=== PATIENT | female | born 1940 | race Caucasian/White ===

== ENCOUNTER 2025-02-07 17:38 | Observation (INO) ==
--- NOTE | 2025-02-07 17:42 | Emergency Department Note ---
Impression & Plan Intractable back pain, Anemia, Pericardial effusion, Abdominal pain ED Provider Note NAME: SONYA VELA AGE: 84 SEX: F : 1940 ARRIVES VIA: Ambulance INFORMANT: Patient, caregiver ED PROVIDER(S): James Caicedo MD CHIEF COMPLAINT: Back pain MEDICAL DECISION MAKING: Patient presents due to concern for back pain. IV was established and blood work was obtained. Patient was ordered IV fentanyl IV methylprednisolone and lidocaine patch. Patient already taken Tylenol prior to arrival. Patient did have a CT abdomen pelvis performed. Patient's blood work showed a white count of 3.8 with a hemoglobin 8.5. This is a drop but the most recent hemoglobin is from 2019 at which point it was 12. Patient's platelet count is unremarkable. Kidney function with a creatinine 1.23. Calcium of 8.5. LFTs and lipase are normal. Patient reportedly developed chest pain so an EKG was obtained by nursing. 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 Patient's chest pain is since resolved. Patient does report that she has a prior history of CAD. Patient CT of the abdomen pelvis shows a pelvic fluid connection that is adnexal in nature. The patient denies ever having her ovaries out. The patient does have mild left hydroureter. Hiatal hernia noted. Patient does have bilateral pleural and pericardial effusions. Patient also with associated inflammatory versus infectious stranding of the ileum cecum and proximal ascending colon. Patient had a recurrence of back pain which necessitated fentanyl IV 25 mcg x 2. In light of the patient's intractable back pain as well as some of the findings on CT and unknown as to whether or not these are acute or chronic findings due to believe the patient would benefit from further admission and testing. I did speak the on-call hospitalist service Dr. Buitrago and the patient was admitted to the medicine service. Discussion w/ other healthcare providers: Lay Kenney PA-C and Dr. Buitrago inpatient medicine service Prior /Outside records reviewed: I reviewed a prior neurology visit from Dr. Mauricio from July 2020. Patient with a history of essential tremor. Patient with known history of DJD dyslipidemia GERD hypothyroidism PTSD emphysema restless leg syndrome. Differential diagnosis: Musculoskeletal, disc herniation, fracture, sprain, strain, cord compression, discitis, sciatica, cauda equina, infection, renal colic, as well as other pathologies were considered. Diagnostics, as interpreted by me: ECG: None Cardiac monitoring: An order was placed for continuous cardiac monitoring. The monitor shows a rate of 85 with sinus rhythm. Patient was placed on pulse oximetry Medical decision rules: None Imaging studies: I informally interpreted the patient's CT abdomen pelvis shows pericardial and pleural effusions but does not show obvious obstruction with formal report to follow. HPI: Patient presents via EMS from [place] due to concerns for back pain. The patient states it was low and acute in onset when she sat up in bed this morning. Patient describes it as midline and nonradiating. No falls or trauma. Patient denies any heavy lifting twisting or turning. Patient states that she took 2 Tylenol did feel improved but around 4:00 felt worse and took 2 additional Tylenol. The patient's pain became more severe and called EMS. No meds given the route. The patient denies any chest pains or shortness of breath. The patient states that she has been eating well but maybe not drinking as much. The patient denies any dysuria or hematuria but does feel occasionally constipated. Patient does complain of abdominal pains as well. Patient denies any bowel bladder incontinence or retention. Patient denies any prior history of back surgery. PAST MEDICAL HISTORY: See Below PAST SURGICAL HISTORY: See Below SOCIAL HISTORY: See Below HOME MEDICATIONS: See Below ALLERGIES: See Below VITALS: See Below PHYSICAL EXAMINATION: GENERAL: NAD, non-toxic. EYE EXAM: Normal conjunctiva. PERRL, no anisocoria and EOM's grossly intact w/o pain. OROPHARYNX: Moist mucus membranes, grossly normal dentition. NECK: Trachea midline, no stridor. Supple, no nuchal rigidity, no adenopathy, non-tender. No signs of meningismus. FROM of the neck with good chin to chest and neck extension. LUNGS: Clear to auscultation. Normal chest wall mechanics. HEART: NSR, no MRG. ABDOMEN: Abdomen soft, periumbilical pain with diffuse tenderness more prominent in the lower abdomen compared to the upper abdomen, no masses, no rebound or guarding. BACK: No CVA TTP. Midline LBP. SKIN: No rashes and no bruising. UPPER EXTREMITIES: Upper extremities are grossly normal. LOWER EXTREMITIES: Grossly normal, no edema. Negative straight leg raise bilaterally but pain does worsen in her back with raising each of the lower extremities. No saddle anesthesia. NEURO EXAM: A&O x3, cranial nerves II-XII grossly intact, normal speech, moves all 4 extremities. Able to raise both legs off the bed. Good strength in the lower extremities good flexion and extension at the ankle and knees. 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 Restless leg syndrome Tremor Pulmonary emphysema Dyslipidemia GERD (gastroesophageal reflux disease) Hypothyroidism Thyroid nodule H/O pulmonary emphysema Osteoporosis Benign head tremor Medical History (Updated 02/07/25 @ 23:42 by James Caicedo MD) DJD (degenerative joint disease) of cervical spine Social History Smoking Status: Former smoker Feels Safe at Home: Yes Allergies Allergies Allergy/AdvReac Type Severity Reaction Status Date / Time No Known Allergies Allergy Verified 02/07/25 18:35 Home Meds Home Medications Medication Instructions Recorded Confirmed albuterol sulfate 90 mcg/actuation 2 puff inhalation Q4H PRN 07/07/19 02/07/25 aerosol inhaler Shortness Of Breath Or Wheezing acetaminophen 500 mg tablet 500 - 1,000 mg PO Q6H PRN 02/07/25 02/07/25 PAIN/FEVER alendronate 70 mg tablet 70 mg PO WK 02/07/25 02/07/25 aspirin 81 mg tablet,delayed 81 mg PO DAILY 02/07/25 02/07/25 release atorvastatin 20 mg tablet 20 mg PO DAILY 02/07/25 02/07/25 buspirone 10 mg tablet 10 mg PO TID 02/07/25 02/07/25 clopidogrel 75 mg tablet 75 mg PO DAILY 02/07/25 02/07/25 donepezil 5 mg tablet 5 mg PO DAILY 02/07/25 02/07/25 fluticasone fur. 100 mcg-umeclid 1 inh inhalation DAILY 02/07/25 02/07/25 62.5 mcg-vilant 25 mcg inhalat.powder (Trelegy Ellipta) furosemide 20 mg tablet 20 mg PO DAILY PRN LEG SWELLING 02/07/25 02/07/25 gabapentin 400 mg capsule 400 mg PO TID 02/07/25 02/07/25 levothyroxine 88 mcg tablet 88 mcg PO DAILYBB 02/07/25 02/07/25 multivitamin 1 tab PO DAILY 02/07/25 02/07/25 pantoprazole 40 mg tablet,delayed 40 mg PO DAILY 02/07/25 02/07/25 release pentoxifylline 400 mg 400 mg PO TIDM 02/07/25 02/07/25 tablet,extended release trazodone 50 mg tablet 50 mg PO HS 02/07/25 02/07/25 Results & Data (ED) Vital Signs Vital Signs - 24 hr 02/07/25 17:39 02/07/25 17:39 02/07/25 18:22 Temperature 36.9 C 36.9 C Temperature Source Oral Oral Pulse Rate 84 Pulse Rate [Finger] 84 Pulse Rhythm Regular Pulse Rhythm [Finger] Regular Pulse Strength Normal Pulse Strength [Finger] Normal Respiratory Rate 18 18 Respiratory Effort / Characteristics Non-Labored Spontaneous Non-Labored Spontaneous Respiratory Depth Normal Normal Respiratory Pattern Blood Pressure 130/54 L Blood Pressure [Left Arm] 130/54 L Blood Pressure Mean 79 Blood Pressure Mean [Left Arm] 79 Blood Pressure Position [Left Arm] Lying Pulse Oximetry 96 96 95 Oxygen Delivery Method Room Air Room Air Room Air Sepsis Recent Fever Within 48 Hours No Sepsis New/Unexplained Change in Mental Status N/A Sepsis Action Taken by Nursing No Action Required 02/07/25 19:13 02/07/25 19:17 02/07/25 22:07 Temperature Temperature Source Pulse Rate 85 Pulse Rate [Finger] 87 77 Pulse Rhythm Pulse Rhythm [Finger] Regular Pulse Strength Pulse Strength [Finger] Normal Respiratory Rate 20 23 Respiratory Effort / Characteristics Non-Labored Spontaneous Respiratory Depth Normal Respiratory Pattern Regular Blood Pressure Blood Pressure [Left Arm] 115/61 158/71 H Blood Pressure Mean Blood Pressure Mean [Left Arm] 79 100 Blood Pressure Position [Left Arm] Lying Pulse Oximetry 95 95 Oxygen Delivery Method Room Air Room Air Sepsis Recent Fever Within 48 Hours Sepsis New/Unexplained Change in Mental Status Sepsis Action Taken by Nursing 02/07/25 23:07 Temperature Temperature Source Pulse Rate 81 Pulse Rate [Finger] Pulse Rhythm Pulse Rhythm [Finger] Pulse Strength Pulse Strength [Finger] Respiratory Rate Respiratory Effort / Characteristics Respiratory Depth Respiratory Pattern Blood Pressure Blood Pressure [Left Arm] Blood Pressure Mean Blood Pressure Mean [Left Arm] Blood Pressure Position [Left Arm] Pulse Oximetry Oxygen Delivery Method Sepsis Recent Fever Within 48 Hours Sepsis New/Unexplained Change in Mental Status Sepsis Action Taken by [facility]idential Medications Current Medication List: was personally reviewed by me Laboratory Data Attestation: I reviewed the patient's lab results. 02/07/25 18:06 02/07/25 18:06 Lab Results 02/07/25 02/07/25 02/07/25 Range/Units 18:06 18:11 19:28 WBC 3.86 L (4.8-10.8) K/ul RBC 2.66 L (4.20-5.40) M/uL Hgb 8.5 L (12.0-16.0) g/dl POC Hgb 8.8 L (12.0-16.0) g/dl Hct 26.3 L (37.0-47.0) % POC Hct 26 L (37-47) % MCV 98.9 (80.0-100.0) fL MCH 32.0 (25.0-34.0) pg MCHC 32.3 (32.0-36.0) g/dL RDW Std Deviation 52.2 H (36.4-46.3) fL RDW Coeff of Blanca 14.3 (11.5-14.5) % Plt Count 132 (130-400) K/uL MPV 10.8 (9.4-12.4) fL Immature Gran % (Auto) 0.5 % Neut % (Auto) 66.6 % Lymph % (Auto) 20.2 % [place] % (Auto) 8.3 % Eos % (Auto) 3.6 % Baso % (Auto) 0.8 % Neut # (Auto) 2.57 (1.40-6.50) K/uL Lymph # (Auto) 0.78 L (1.20-3.40) K/uL [place] # (Auto) 0.32 (0.11-0.59) K/uL Eos # (Auto) 0.14 (0.00-0.50) K/uL Baso # (Auto) 0.03 (0.00-0.20) K/uL Immature Gran # (Auto) 0.02 (0.01-0.20) K/uL POC Sodium 142 (135-144) mmol/L Sodium 143 (136-145) mmol/L POC Potassium 4.3 (3.3-5.0) mmol/L Potassium 4.3 (3.5-5.1) mmol/L POC Chloride 106 (101-112) mmol/L Chloride 109 H (98-107) mmol/L Carbon Dioxide 30 (21-32) mmol/L POC Total CO2 25 (24-31) mmol/L Anion Gap 4 (3-11) POC Anion Gap 17.0 (16-25) mmol/L POC BUN 22 H (7-18) mg/dl BUN 24 H (6-23) mg/dl Creatinine 1.23 H (0.6-1.2) mg/dl POC Creatinine 1.5 H (0.6-1.3) mg/dl Est Cr Clr Drug Dosing 24.0 ml/min eGFR 43.06 BUN/Creatinine Ratio 19.5 (10-20) Glucose 123 H (70-99(Fasting)) mg/dl POC Glucose (other) 119 H (70-99) mg/dl Calcium 8.5 L (8.6-10.3) mg/dl POC Ioniz Calcium Amarjit 1.17 (1.12-1.32) mmol/l Total Bilirubin 0.2 (0.2-1.0) mg/dl AST 17 (13-39) U/L ALT 11 (7-52) U/L Alkaline Phosphatase 58 (34-104) U/L Troponin I High Sens 7.5 (0-14) pg/ml Total Protein 6.1 (6.0-8.3) gm/dl Albumin 3.4 (3.4-5.0) gm/dl Globulin 2.7 (2.5-4.0) gm/dl Albumin/Globulin Ratio 1.3 (0.9-2) Lipase 26 (11-82) U/L Urine Color Urine Appearance (Clear) Urine pH (4.5-7.5) Ur Specific [place] (1.000-1.030) Urine Protein (Negative) Urine Glucose (UA) (Negative) Urine Ketones (Negative) Urine Blood (Negative) Urine Nitrite (Negative) Urine Bilirubin (Negative) Urine Urobilinogen (Negative) Ur Leukocyte Esterase (Negative) Urine RBC (0-2) /hpf Urine WBC (0-5) /hpf Ur Epithelial Cells (0-2) /hpf Urine Bacteria (None Seen) Hyaline Casts (None Presnt) /lpf 02/07/25 02/07/25 Range/Units 20:56 21:37 WBC (4.8-10.8) K/ul RBC (4.20-5.40) M/uL Hgb (12.0-16.0) g/dl POC Hgb (12.0-16.0) g/dl Hct (37.0-47.0) % POC Hct (37-47) % MCV (80.0-100.0) fL MCH (25.0-34.0) pg MCHC (32.0-36.0) g/dL RDW Std Deviation (36.4-46.3) fL RDW Coeff of Blanca (11.5-14.5) % Plt Count (130-400) K/uL MPV (9.4-12.4) fL Immature Gran % (Auto) % Neut % (Auto) % Lymph % (Auto) % [place] % (Auto) % Eos % (Auto) % Baso % (Auto) % Neut # (Auto) (1.40-6.50) K/uL Lymph # (Auto) (1.20-3.40) K/uL [place] # (Auto) (0.11-0.59) K/uL Eos # (Auto) (0.00-0.50) K/uL Baso # (Auto) (0.00-0.20) K/uL Immature Gran # (Auto) (0.01-0.20) K/uL POC Sodium (135-144) mmol/L Sodium (136-145) mmol/L POC Potassium (3.3-5.0) mmol/L Potassium (3.5-5.1) mmol/L POC Chloride (101-112) mmol/L Chloride (98-107) mmol/L Carbon Dioxide (21-32) mmol/L POC Total CO2 (24-31) mmol/L Anion Gap (3-11) POC Anion Gap (16-25) mmol/L POC BUN (7-18) mg/dl BUN (6-23) mg/dl Creatinine (0.6-1.2) mg/dl POC Creatinine (0.6-1.3) mg/dl Est Cr Clr Drug Dosing ml/min eGFR BUN/Creatinine Ratio (10-20) Glucose (70-99(Fasting)) mg/dl POC Glucose (other) (70-99) mg/dl Calcium (8.6-10.3) mg/dl POC Ioniz Calcium Amarjit (1.12-1.32) mmol/l Total Bilirubin (0.2-1.0) mg/dl AST (13-39) U/L ALT (7-52) U/L Alkaline Phosphatase (34-104) U/L Troponin I High Sens 9.4 (0-14) pg/ml Total Protein (6.0-8.3) gm/dl Albumin (3.4-5.0) gm/dl Globulin (2.5-4.0) gm/dl Albumin/Globulin Ratio (0.9-2) Lipase (11-82) U/L Urine Color Yellow Urine Appearance Clear (Clear) Urine pH 5.5 (4.5-7.5) Ur Specific [place] 1.010 (1.000-1.030) Urine Protein Negative (Negative) Urine Glucose (UA) Negative (Negative) Urine Ketones Negative (Negative) Urine Blood Trace-intact H (Negative) Urine Nitrite Negative (Negative) Urine Bilirubin Negative (Negative) Urine Urobilinogen Negative (Negative) Ur Leukocyte Esterase Negative (Negative) Urine RBC 3-5 H (0-2) /hpf Urine WBC 0-5 (0-5) /hpf Ur Epithelial Cells 6-10 H (0-2) /hpf Urine Bacteria None Seen (None Seen) Hyaline Casts P (None Presnt) /lpf Administered Medications Discontinued Medications Fentanyl Citrate (Fentanyl Citrate Pf 100 Mcg/2 Ml Vial) 25 mcg IV NOW STA Stop: 02/07/25 17:51 Last Admin: 02/07/25 18:17 Dose: 25 mcg Documented By: JW Fentanyl Citrate (Fentanyl Citrate Pf 100 Mcg/2 Ml Vial) 25 mcg IV NOW STA Stop: 02/07/25 19:26 Last Admin: 02/07/25 19:38 Dose: 25 mcg Documented By: PAG Fentanyl Citrate (Fentanyl Citrate Pf 100 Mcg/2 Ml Vial) 25 mcg IV NOW STA Stop: 02/07/25 21:55 Last Admin: 02/07/25 22:06 Dose: 25 mcg Documented By: ASW Sodium Chloride (Nss) 1,000 mls @ 999 mls/hr IV .Q1H1M STA Stop: 02/07/25 18:50 Last Infusion: 02/07/25 19:41 Dose: Infused Documented By: Admin: 02/07/25 18:16 Dose: 999 mls/hr Documented By: TREVER Acetaminophen 825 mg/ EMPTY (BAG) 82.5 mls @ 330 mls/hr IV NOW STA Stop: 02/07/25 17:51 Last Admin: 02/07/25 18:24 Dose: Not Given Documented By: TREVER Ioversol (Optiray 320 100ml) 94 ml IV ONCE ONE Stop: 02/07/25 18:58 Last Admin: 02/07/25 18:58 Dose: 94 ml Documented By: JUSTEN Lidocaine (Lidocaine 5% 1 Patch) 1 patch TD NOW STA Stop: 02/07/25 17:53 Last Admin: 02/07/25 18:16 Dose: 1 patch Documented By: TREVER Methylprednisolone (Methylprednisolone 125 Mg/2 Ml Vial) 60 mg IV NOW STA Stop: 02/07/25 17:53 Last Admin: 02/07/25 18:17 Dose: 60 mg Documented By: TREVER Imaging Data Radiologist's Impression: Abdomen/Pelvis CT 02/07/25 17:50 EXAM: CT abd pelvis IV con only CLINICAL HISTORY: LBP/midline, periumbilical/diffuse ab pain. TECHNIQUE: CT of the abdomen and pelvis was performed with contrast, with the following protocol: axial images with, and reconstructed coronal and sagittal images. One of the following dose reduction techniques was utilized for this exam: Automated exposure control, adjustment of the mA and/or kV according to patient size, and use of iterative reconstruction. COMPARISON: No prior studies available for comparison. FINDINGS: Mild bilateral pleural and pericardial effusion. Abdomen: Moderate sliding hiatal hernia (type I). Liver: Hepatomegaly, measuring 17 cm at the largest craniocaudal span in the right lobe. There is a 1.0 cm simple cyst in segment IV. No focal lesions, cysts, or masses were identified. Hepatic vasculature and biliary ducts are unremarkable. Gallbladder and Biliary System: The gallbladder is normal in size and shape. There is a 0.5 cm calcific stone in the fundus. No wall thickening or pericholecystic fluid were identified. The common bile duct is normal in caliber without dilation. Pancreas: Pancreatic head, body, and tail are visualized and appear normal in size and density. No pancreatic masses or calcifications were noted. The pancreatic duct is not dilated. Spleen: Normal in size, shape, and density. No splenic lesions or masses were identified. Kidneys and Adrenal Glands: Both kidneys are normal in size, shape, and position. Cortical thickness is within normal limits. No renal calculi or hydronephrosis. Mild hydroureter noted on the left side in the two upper thirds. Adrenal glands are unremarkable with no evidence of masses or hyperplasia. Pelvis: Urinary Bladder: Normal in contour and wall thickness. No intraluminal lesions identified. Uterus and Ovaries: Not visualized but no gross abnormalities noted. Peritoneal and Retroperitoneal Structures: Fluid collection noted in the left side of the pelvis, measuring 2.9 x 2.7 x 2.5 cm. No lymphadenopathy was noted. Atherosclerotic calcification of the aorta and major branches is seen. Bowel: Mild thickening and edema of the wall in the last ileal loop, the cecum and proximal ascending colon (Series 300 Image 25/90, Series 2 Image 49/84), however they are normal in caliber. Associated mild fat stranding is also noted. Increased stool density in the ascending but mainly in the transverse colon. Marked sigmoid colon diverticulosis without CT evidence of acute diverticulitis. The appendix is not visualized. No evidence of bowel obstruction. Bones and Soft Tissues: Pelvic bones and soft tissues are unremarkable. No fractures or abnormal masses were identified. Bony island in the left femur. IMPRESSION: Thickened-walled last ileal loop, cecum and proximal ascending colon with mild peripheral fat stranding, probable inflammatory/ infectious etiology. Fecal load of the ascending and transverse colon. Noncomplicated sigmoid colon diverticulosis. Left pelvic fluid collection measuring 2.9 x 2.7 x2.5 cm, probable adnexal versus lymphocele (if history of oophorectomy), with upstream mild left hydroureter. Moderate sliding hiatal hernia (type I). Hepatomegaly, 17 cm, and a 1.0 cm simple cyst in the liver. A small gallstone in the fundus. Mild bilateral pleural and pericardial effusion. Further evaluation with chest CT recommended if clinically warranted. Correlate clinically. Electronically signed by Blair Villavicencio 02-07-2025 8:43 PM Discharge Plan Visit Data Chief Complaint: Back Injury/Pain Stated Complaint: BACK PAIN ED Provider: James Caicedo Discharge Problem: Intractable back pain, Anemia, Pericardial effusion, Abdominal pain Forms Stand Alone Forms: [facility] Prescriptions Prescriptions: No Action albuterol sulfate 90 mcg/actuation HFA aerosol inhaler 2 puff inhalation Q4H PRN (Reason: Shortness Of Breath Or Wheezing) multivitamin Tablet 1 tab PO DAILY atorvastatin 20 mg tablet 20 mg PO DAILY donepezil 5 mg tablet 5 mg PO DAILY trazodone 50 mg tablet 50 mg PO HS alendronate 70 mg tablet 70 mg PO WK gabapentin 400 mg capsule 400 mg PO TID clopidogrel 75 mg tablet 75 mg PO DAILY aspirin 81 mg Tablet,Delayed Release (Dr/Ec) 81 mg PO DAILY acetaminophen [Tylenol Ex Str Rapid Release] 500 mg Tablet 500 - 1,000 mg PO Q6H PRN (Reason: PAIN/FEVER) pentoxifylline 400 mg tablet extended release 400 mg PO TIDM levothyroxine 88 mcg tablet 88 mcg PO DAILYBB pantoprazole 40 mg tablet,delayed release (DR/EC) 40 mg PO DAILY buspirone 10 mg tablet 10 mg PO TID furosemide 20 mg tablet 20 mg PO DAILY PRN (Reason: LEG SWELLING) Trelegy Ellipta 100-62.5-25 mcg blister with device 1 inh INHALATION DAILY Referrals Referrals: Adriano Benson [Outside Practitioners] - Discharge Problem: Anemia Qualifiers: Anemia type: unspecified type Qualified Code(s): D64.9 - Anemia, unspecified Abdominal pain Qualifiers: Abdominal location: periumbilical Qualified Code(s): R10.33 - Periumbilical pain
[2025-02-07] MEDS: LIDOCAINE 5% 1 PATCH TD STA (18:16)
[2025-02-07] MEDS: SODIUM CHLORIDE 0.9% 1,000 ML IV STA (18:16)
[2025-02-07] MEDS: fentaNYL citrate PF 100 MCG/2 ML VIAL IV STA ×3 (18:17→22:06)
[2025-02-07] MEDS: methylPREDNISolone 125 MG/2 ML VIAL IV STA (18:17)
[2025-02-07] MEDS: ACETAMINOPHEN IV STA (18:24)
[2025-02-07 18:28] LABS: Basophils # (auto) 0.03 K/uL (0.00-0.20); Basophils % (auto) 0.8 %; Eosinophils # (auto) 0.14 K/uL (0.00-0.50); Eosinophils % (auto) 3.6 %; Hematocrit (blood only) 26.3 % (37.0-47.0); Hemoglobin 8.5 g/dl (12.0-16.0); Immature Granulocytes # (auto) 0.02 K/uL (0.01-0.20); Immature Granulocytes % (auto) 0.5 %; Lymphocytes # (auto) 0.78 K/uL (1.20-3.40); Lymphocytes % (auto) 20.2 %; Mean Corpuscular Hgb Conc 32.3 g/dL (32.0-36.0); Mean Corpuscular Volume 98.9 fL (80.0-100.0); Mean Platelet Volume 10.8 fL (9.4-12.4); Monocytes # (auto) 0.32 K/uL (0.11-0.59); Monocytes % (auto) 8.3 %; Neutrophils # (auto) 2.57 K/uL (1.40-6.50); Neutrophils % (auto) 66.6 %; Platelet Count 132 K/uL (130-400); RDW Coefficient of Variation 14.3 % (11.5-14.5); RDW Standard Deviation 52.2 fL (36.4-46.3); Red Blood Count 2.66 M/uL (4.20-5.40); White Blood Count 3.86 K/ul (4.8-10.8)
[2025-02-07 18:28] LABS: iSTAT Creatinine 1.5 mg/dl (0.6-1.3); iSTAT Hemoglobin 8.8 g/dl (12.0-16.0); iSTAT Ionized Calcium 1.17 mmol/l (1.12-1.32); iSTAT Potassium 4.3 mmol/L (3.3-5.0)
[2025-02-07 18:43] LABS: Albumin Globulin Ratio 1.3 (0.9-2); Albumin Level 3.4 gm/dl (3.4-5.0); BUN Creatinine Ratio 19.5 (10-20); Bilirubin,Total 0.2 mg/dl (0.2-1.0); Calcium 8.5 mg/dl (8.6-10.3); Globulin 2.7 gm/dl (2.5-4.0); Potassium 4.3 mmol/L (3.5-5.1); Total Protein 6.1 gm/dl (6.0-8.3)
[2025-02-07] MEDS: OPTIRAY 320 100ml IV ONE (18:58)
--- NOTE | 2025-02-07 20:43 | CT Scan Report ---
EXAM: CT abd pelvis IV con only CLINICAL HISTORY: LBP/midline, periumbilical/diffuse ab pain. TECHNIQUE: CT of the abdomen and pelvis was performed with contrast, with the following protocol: axial images with, and reconstructed coronal and sagittal images. One of the following dose reduction techniques was utilized for this exam: Automated exposure control, adjustment of the mA and/or kV according to patient size, and use of iterative reconstruction. COMPARISON: No prior studies available for comparison. FINDINGS: Mild bilateral pleural and pericardial effusion. Abdomen: Moderate sliding hiatal hernia (type I). Liver: Hepatomegaly, measuring 17 cm at the largest craniocaudal span in the right lobe. There is a 1.0 cm simple cyst in segment IV. No focal lesions, cysts, or masses were identified. Hepatic vasculature and biliary ducts are unremarkable. Gallbladder and Biliary System: The gallbladder is normal in size and shape. There is a 0.5 cm calcific stone in the fundus. No wall thickening or pericholecystic fluid were identified. The common bile duct is normal in caliber without dilation. Pancreas: Pancreatic head, body, and tail are visualized and appear normal in size and density. No pancreatic masses or calcifications were noted. The pancreatic duct is not dilated. Spleen: Normal in size, shape, and density. No splenic lesions or masses were identified. Kidneys and Adrenal Glands: Both kidneys are normal in size, shape, and position. Cortical thickness is within normal limits. No renal calculi or hydronephrosis. Mild hydroureter noted on the left side in the two upper thirds. Adrenal glands are unremarkable with no evidence of masses or hyperplasia. Pelvis: Urinary Bladder: Normal in contour and wall thickness. No intraluminal lesions identified. Uterus and Ovaries: Not visualized but no gross abnormalities noted. Peritoneal and Retroperitoneal Structures: Fluid collection noted in the left side of the pelvis, measuring 2.9 x 2.7 x 2.5 cm. No lymphadenopathy was noted. Atherosclerotic calcification of the aorta and major branches is seen. Bowel: Mild thickening and edema of the wall in the last ileal loop, the cecum and proximal ascending colon (Series 300 Image 25/90, Series 2 Image 49/84), however they are normal in caliber. Associated mild fat stranding is also noted. Increased stool density in the ascending but mainly in the transverse colon. Marked sigmoid colon diverticulosis without CT evidence of acute diverticulitis. The appendix is not visualized. No evidence of bowel obstruction. Bones and Soft Tissues: Pelvic bones and soft tissues are unremarkable. No fractures or abnormal masses were identified. Bony island in the left femur. IMPRESSION: Thickened-walled last ileal loop, cecum and proximal ascending colon with mild peripheral fat stranding, probable inflammatory/ infectious etiology. Fecal load of the ascending and transverse colon. Noncomplicated sigmoid colon diverticulosis. Left pelvic fluid collection measuring 2.9 x 2.7 x2.5 cm, probable adnexal versus lymphocele (if history of oophorectomy), with upstream mild left hydroureter. Moderate sliding hiatal hernia (type I). Hepatomegaly, 17 cm, and a 1.0 cm simple cyst in the liver. A small gallstone in the fundus. Mild bilateral pleural and pericardial effusion. Further evaluation with chest CT recommended if clinically warranted. Correlate clinically. Electronically signed by Blair Villavicencio 02-07-2025 8:43 PM
[2025-02-07 21:51] LABS: Appearance Urine Clear (Clear); Bilirubin Urine Negative (Negative); Blood Urine Trace-intact (Negative); Color Urine Yellow; Glucose Urine UA Negative (Negative); Ketones Urine Negative (Negative); Leukocyte Esterase Urine Negative (Negative); Nitrite Urine Negative (Negative); Protein Urine Negative (Negative); Urobilinogen Urine Negative (Negative); pH Urine 5.5 (4.5-7.5)
[2025-02-07 22:00] LABS: Hyaline Casts Urine P /lpf (None Presnt)
[2025-02-07 22:01] LABS: Bacteria Urine None Seen (None Seen); WBC Urine 0-5 /hpf (0-5)
--- NOTE | 2025-02-07 22:16 | History & Physical Report ---
Date of Service February 07, 2025 Assessment & Plan (1) Acute back pain: (2) Constipation: (3) Renal insufficiency: (4) Anemia: (5) Hypocalcemia: (6) Pericardial effusion: Plan 84-year-old female PMHx emphysema, GERD, hypothyroidism, essential tremor, RLS, PTSD presenting via EMS for lower back pain. ED evaluation reveals leukopenia, H&H 8.5/26.3; chloride 109, BUN 24, creatinine 1.23, calcium 8.5; troponin 7.5, 9.4 on repeat; UA negative for infection; lipase 26; CTAP with thickening walled last ileal loop cecum and proximal ascending colon likely inflammatory/infectious, fecal loading in ascending and transverse colon, diverticulosis, L pelvic fluid collection (adnexal versus lymphocele) moderate sliding hiatal hernia type I, hepatomegaly simple cyst in liver, small gallstone), and mild bilateral pleural pericardial effusions.; Provided with 1L NSS, methylprednisolone 60 mg IV, lidocaine patch, fentanyl citrate 25 mcg x 3, and acetaminophen IV in ED #Acute back pain Back pain starting morning of arrival, acute onset when sitting up in bed; trialed multiple doses of Tylenol with minimal relief, maximum pain "20/10". No recent trauma. No complaints of numbness/tingling, saddle anesthesia, or incontinence of bowel/bladder (from baseline incontinence). Without midline tenderness on exam, no skin changes. Suspect mainly musculoskeletal in nature but unclear if some component is GI related - CTAP with fecal loading, thickening within colon, sliding hiatal hernia, mild bilateral pleural effusions and pericardial effusion - Fall precautions - Heating pad and lidocaine patch - Pain management- continue home dose gabapentin and prn Tylenol - can advance pain management as appropriate but with caution of adding opioids given constipation - Defer further steroids given ? infectious etiology as identified on CTAP - PT/OT ordered- appreciate assistance #Constipation/Abdominal pain Last BM between 2-5 days [employer], was "very dark brown" in color but normal consistency; does admit to some abdominal pain and with clear tenderness to palpation of RUQ. No N/V. Was to follow with GI upcoming 02/09/2025. - Most recent CTAP fecal loading, thickening within colon, sliding hiatal hernia, mild bilateral pleural effusions and pericardial effusion - Lipase WNL; LFTs WNL - Fecal occult pending - Miralax + Senna rod, MoM prn - GI consulted - appreciate input + recs #Renal insufficiency Likely secondary to renal hypoperfusion; poor oral intake per patient - Cr 1.23, BUN 24; UA negative for infection - BMP am - Given 1L NSS in ED; deferred further fluids given pleural effusions but adjust as appropriate - Hold furosemide - Bladder scan prn #Anemia Admitting H&H 8.5/26.3; most recent labs from 2019 were 12.1/38.7; denies overt bleeding but states that her stools were black in color not long ago and her most recent stools were "very dark brown." Does have history of anemia but patient unclear of etiology, follows with oncologist for management and has had iron transfusions in the past. - H/H 8.5/26.3; normocytic normochromic pattern - Iron, TIBC/UIBC, ferritin pending; vitamin B12 and folate pending - CTAP w/ hepatomegaly; LFTs WNL - Type + screen pending - Fecal occult pending #Hypocalcemia Asymptomatic currently. - Ca 8.5, WNL albumin- repeat AM - Calcium Carbonate x 1 #Pericardial effusion/CAD s/p stent ? infectious/inflammatory etiology; Of note, with history of stent placement, on DAPT. - EKG at admission reports septal infarct; troponin x 2 WNL; patient denies chest pain during evaluation - EKG prn for chest pain - CTAP with pericardial effusion reported -- Echo pending #COPD/pulmonary emphysema- Albuterol inhaler as needed, Trelegy #HLD- Atorvastatin #PTSD- Trazodone, buspirone #Hypothyroidism- Levothyroxine #GERD- Pantoprazole Dispo: Admit, med/tele VTE prophylaxis: SCDs- consider chemical prophylaxis pending complete workup/if prolonged stay This document was dictated utilizing [employer]. Please excuse any grammatical errors that may be secondary to use of this software. Admission and Anticipated Discharge Date Admission Date: 02/07/2025 History of Present Illness Chief Complaint: Back pain Primary Care Provider: Latrice Davis PA-C 84-year-old female PMHx emphysema, GERD, hypothyroidism, essential tremor, RLS, PTSD presenting via EMS for lower back pain. Reportedly had acute onset low back pain when she sat up in bed the morning of arrival. Located at midline and does not radiate. Did utilize Tylenol multiple times throughout the day which provided some relief but the pain continues become more severe. Around 1600 she had a recurrence of back pain, stating the pain was "20/10" on the pain scale and she was screaming out in pain. Her telecom field technician, Yenifer, is present in room and helps to provide a history. States that the patient was "literally screaming out in pain" and she initially was going to drive her to the hospital but decided to call the ambulance instead. Shelby denies any neurological symptoms throughout this course other than some numbness in her feet after the ambulance ride. States that she has bowel and bladder incontinence at baseline but that this has not worsened or changed at all since the onset of back pain. Denies any recent falls or trauma to the back. Has had a history of back pain in the past, but never this severe. Admits that she often has problems with constipation, and that her last BM was between 2-5 days ago. Of note, the patient has had black stool in the past, but states that her last BM was a dark brown color and does not believe that it was black then. She denies bleeding or blood in stool otherwise. Does have some mild abdominal pain that is "all over" and mainly when she does not have a BM. She denies N/V. No additional symptoms to include chest pain, SOB, palpitations, diarrhea, LUTS, weakness, syncope, or F/C. Does have a history of R breast CA approximately 3 years ago and w/ R mastectomy; follows with oncologist who also manages her anemia and iron transfusions. Is not on oral iron at this time. ED evaluation reveals leukopenia, H&H 8.5/26.3; chloride 109, BUN 24, creatinine 1.23, calcium 8.5; troponin 7.5, 9.4 on repeat; UA negative for infection; lipase 26; CTAP with thickening walled last ileal loop cecum and proximal ascending colon likely inflammatory/infectious, fecal loading in ascending and transverse colon, diverticulosis, L pelvic fluid collection (adnexal versus lymphocele) moderate sliding hiatal hernia type I, hepatomegaly simple cyst in liver, small gallstone), and mild bilateral pleural pericardial effusions.; Provided with 1L NSS, methylprednisolone 60 mg IV, lidocaine patch, fentanyl citrate 25 mcg x 3, and acetaminophen IV in ED. Please see Dr. Hirsch's attestation for adjustments/additions to treatment plan. Allergies Allergy/AdvReac Type Severity Reaction Status Date / Time No Known Allergies Allergy Verified 02/07/25 18:35 Home Medications Medication Instructions Recorded Confirmed Type albuterol sulfate 90 mcg/actuation 2 puff inhalation Q4H PRN 07/07/19 02/07/25 History aerosol inhaler Shortness Of Breath Or Wheezing acetaminophen 500 mg tablet 500 - 1,000 mg PO Q6H PRN 02/07/25 02/07/25 History PAIN/FEVER alendronate 70 mg tablet 70 mg PO WK 02/07/25 02/07/25 History aspirin 81 mg tablet,delayed 81 mg PO DAILY 02/07/25 02/07/25 History release atorvastatin 20 mg tablet 20 mg PO DAILY 02/07/25 02/07/25 History buspirone 10 mg tablet 10 mg PO TID 02/07/25 02/07/25 History clopidogrel 75 mg tablet 75 mg PO DAILY 02/07/25 02/07/25 History donepezil 5 mg tablet 5 mg PO DAILY 02/07/25 02/07/25 History fluticasone fur. 100 mcg-umeclid 1 inh inhalation DAILY 02/07/25 02/07/25 History 62.5 mcg-vilant 25 mcg inhalat.powder (Trelegy Ellipta) furosemide 20 mg tablet 20 mg PO DAILY PRN LEG SWELLING 02/07/25 02/07/25 History gabapentin 400 mg capsule 400 mg PO TID 02/07/25 02/07/25 History levothyroxine 88 mcg tablet 88 mcg PO DAILYBB 02/07/25 02/07/25 History multivitamin 1 tab PO DAILY 02/07/25 02/07/25 History pantoprazole 40 mg tablet,delayed 40 mg PO DAILY 02/07/25 02/07/25 History release pentoxifylline 400 mg 400 mg PO TIDM 02/07/25 02/07/25 History tablet,extended release trazodone 50 mg tablet 50 mg PO HS 02/07/25 02/07/25 History 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 Restless leg syndrome Tremor Pulmonary emphysema Dyslipidemia GERD (gastroesophageal reflux disease) Hypothyroidism Thyroid nodule H/O pulmonary emphysema Osteoporosis Benign head tremor Medical History (Updated 02/07/25 @ 23:42 by James Caicedo MD) DJD (degenerative joint disease) of cervical spine Social History Smoking Status: Former smoker Hx Alcohol Use: No Hx Substance Use: No Current Living Situation: Other Current Living Situation Comment: lives at home with caregivers Feels Safe at Home: Yes Safety Concerns: Feels Safe At This Time Assistive Devices: Walker Review of Systems Review of Systems: All systems reviewed & are unremarkable except as noted in Subjective Physical Exam Physical Exam: General: No acute distress Skin: Warm and dry; No rashes noted to back/abdomen Head: Normocephalic, atraumatic; tremor Eyes: PERRL, conjunctivae clear, sclera non-icteric; bruise below R eye (patient unsure where this came from) ENT: External ear and ear canal without swelling; nose atraumatic; good dentition, tongue normal appearance, pharynx normal Neck: Supple, no LAD Cardio: RRR, no M/G/R, S1 and S2 normal Resp: No respiratory distress, Lungs CTA in all lobes bilaterally, no wheezes, rales, or rhonchi Abdomen: Soft, symmetric, tenderness to palpation RUQ, liver palpable below rib border; No guarding or peritoneal signs; No masses or splenomegaly; Bowel sounds normoactive MSK: No deformities; pulses palpable and equal; no edema; No midline tenderness to palpation of back, with tenderness to palpation of R paraspinal muscles at area of R kidney; negative straight leg raise bilaterally Neuro: Awake, alert; Sensation intact bilaterally; CN grossly intact. Resting tremor and head tremor at baseline. Psych: Appropriate mood and affect; good judgement and insight. Cement Mixer, Yenifer, present in room at time of visit. Results & Data Results & Data Vital Signs (Past 12 Hours) Vital Signs Temp Pulse Pulse Resp BP BP Pulse Ox 02/07/25 22:07 77 23 158/71 H 95 02/07/25 19:17 87 20 115/61 95 02/07/25 19:13 85 02/07/25 18:22 95 02/07/25 17:39 36.9 C 84 18 130/54 L 96 02/07/25 17:39 36.9 C 84 18 130/54 L 96 O2 Del Method 02/07/25 22:07 Room Air 02/07/25 19:17 Room Air 02/07/25 19:13 02/07/25 18:22 Room Air 02/07/25 17:39 Room Air 02/07/25 17:39 Room Air Laboratory Results 02/07/25 02/07/25 02/07/25 21:37 20:56 19:28 WBC RBC Hgb POC Hgb Hct POC Hct MCV MCH MCHC RDW Std Deviation RDW Coeff of Blanca Plt Count MPV Immature Gran % (Auto) Neut % (Auto) Lymph % (Auto) [place] % (Auto) Eos % (Auto) Baso % (Auto) Neut # (Auto) Lymph # (Auto) [place] # (Auto) Eos # (Auto) Baso # (Auto) Immature Gran # (Auto) POC Sodium Sodium POC Potassium Potassium POC Chloride Chloride Carbon Dioxide POC Total CO2 Anion Gap POC Anion Gap POC BUN BUN Creatinine POC Creatinine Est Cr Clr Drug Dosing eGFR BUN/Creatinine Ratio Glucose POC Glucose (other) Calcium POC Ioniz Calcium Amarjit Total Bilirubin AST ALT Alkaline Phosphatase Troponin I High Sens 9.4 7.5 Total Protein Albumin Globulin Albumin/Globulin Ratio Lipase Urine Color Yellow Urine Appearance Clear Urine pH 5.5 Ur Specific [place] 1.010 Urine Protein Negative Urine Glucose (UA) Negative Urine Ketones Negative Urine Blood Trace-intact H Urine Nitrite Negative Urine Bilirubin Negative Urine Urobilinogen Negative Ur Leukocyte Esterase Negative Urine RBC 3-5 H Urine WBC 0-5 Ur Epithelial Cells 6-10 H Urine Bacteria None Seen Hyaline Casts P 02/07/25 02/07/25 18:11 18:06 WBC 3.86 L RBC 2.66 L Hgb 8.5 L POC Hgb 8.8 L Hct 26.3 L POC Hct 26 L MCV 98.9 MCH 32.0 MCHC 32.3 RDW Std Deviation 52.2 H RDW Coeff of Blanca 14.3 Plt Count 132 MPV 10.8 Immature Gran % (Auto) 0.5 Neut % (Auto) 66.6 Lymph % (Auto) 20.2 [place] % (Auto) 8.3 Eos % (Auto) 3.6 Baso % (Auto) 0.8 Neut # (Auto) 2.57 Lymph # (Auto) 0.78 L [place] # (Auto) 0.32 Eos # (Auto) 0.14 Baso # (Auto) 0.03 Immature Gran # (Auto) 0.02 POC Sodium 142 Sodium 143 POC Potassium 4.3 Potassium 4.3 POC Chloride 106 Chloride 109 H Carbon Dioxide 30 POC Total CO2 25 Anion Gap 4 POC Anion Gap 17.0 POC BUN 22 H BUN 24 H Creatinine 1.23 H POC Creatinine 1.5 H Est Cr Clr Drug Dosing 24.0 eGFR 43.06 BUN/Creatinine Ratio 19.5 Glucose 123 H POC Glucose (other) 119 H Calcium 8.5 L POC Ioniz Calcium Amarjit 1.17 Total Bilirubin 0.2 AST 17 ALT 11 Alkaline Phosphatase 58 Troponin I High Sens Total Protein 6.1 Albumin 3.4 Globulin 2.7 Albumin/Globulin Ratio 1.3 Lipase 26 Urine Color Urine Appearance Urine pH Ur Specific [place] Urine Protein Urine Glucose (UA) Urine Ketones Urine Blood Urine Nitrite Urine Bilirubin Urine Urobilinogen Ur Leukocyte Esterase Urine RBC Urine WBC Ur Epithelial Cells Urine Bacteria Hyaline Casts Diagnostic Findings Abdomen/Pelvis CT 02/07/25 17:50 EXAM: CT abd pelvis IV con only CLINICAL HISTORY: LBP/midline, periumbilical/diffuse ab pain. TECHNIQUE: CT of the abdomen and pelvis was performed with contrast, with the following protocol: axial images with, and reconstructed coronal and sagittal images. One of the following dose reduction techniques was utilized for this exam: Automated exposure control, adjustment of the mA and/or kV according to patient size, and use of iterative reconstruction. COMPARISON: No prior studies available for comparison. FINDINGS: Mild bilateral pleural and pericardial effusion. Abdomen: Moderate sliding hiatal hernia (type I). Liver: Hepatomegaly, measuring 17 cm at the largest craniocaudal span in the right lobe. There is a 1.0 cm simple cyst in segment IV. No focal lesions, cysts, or masses were identified. Hepatic vasculature and biliary ducts are unremarkable. Gallbladder and Biliary System: The gallbladder is normal in size and shape. There is a 0.5 cm calcific stone in the fundus. No wall thickening or pericholecystic fluid were identified. The common bile duct is normal in caliber without dilation. Pancreas: Pancreatic head, body, and tail are visualized and appear normal in size and density. No pancreatic masses or calcifications were noted. The pancreatic duct is not dilated. Spleen: Normal in size, shape, and density. No splenic lesions or masses were identified. Kidneys and Adrenal Glands: Both kidneys are normal in size, shape, and position. Cortical thickness is within normal limits. No renal calculi or hydronephrosis. Mild hydroureter noted on the left side in the two upper thirds. Adrenal glands are unremarkable with no evidence of masses or hyperplasia. Pelvis: Urinary Bladder: Normal in contour and wall thickness. No intraluminal lesions identified. Uterus and Ovaries: Not visualized but no gross abnormalities noted. Peritoneal and Retroperitoneal Structures: Fluid collection noted in the left side of the pelvis, measuring 2.9 x 2.7 x 2.5 cm. No lymphadenopathy was noted. Atherosclerotic calcification of the aorta and major branches is seen. Bowel: Mild thickening and edema of the wall in the last ileal loop, the cecum and proximal ascending colon (Series 300 Image 25/90, Series 2 Image 49/84), however they are normal in caliber. Associated mild fat stranding is also noted. Increased stool density in the ascending but mainly in the transverse colon. Marked sigmoid colon diverticulosis without CT evidence of acute diverticulitis. The appendix is not visualized. No evidence of bowel obstruction. Bones and Soft Tissues: Pelvic bones and soft tissues are unremarkable. No fractures or abnormal masses were identified. Bony island in the left femur. IMPRESSION: Thickened-walled last ileal loop, cecum and proximal ascending colon with mild peripheral fat stranding, probable inflammatory/ infectious etiology. Fecal load of the ascending and transverse colon. Noncomplicated sigmoid colon diverticulosis. Left pelvic fluid collection measuring 2.9 x 2.7 x2.5 cm, probable adnexal versus lymphocele (if history of oophorectomy), with upstream mild left hydroureter. Moderate sliding hiatal hernia (type I). Hepatomegaly, 17 cm, and a 1.0 cm simple cyst in the liver. A small gallstone in the fundus. Mild bilateral pleural and pericardial effusion. Further evaluation with chest CT recommended if clinically warranted. Correlate clinically. Electronically signed by Blair Villavicencio 02-07-2025 8:43 PM Medications Administered NSS 1L Methylprednisolone 60 mg IV Lidocaine patch x 1 Fentanyl citrate 25 mcg IV x 3 Acetaminophen 825 Mg IV ECG Additional Comments: NSR, septal infarct 88bpm, MO 186, QRS 100, QT/QTc 398/481, PRT 74/-22/109 Code Status & VTE Plan Code Status Full Supervising Physician Co-Signing Physician Notes Attending addendum: I have physically seen this patient, have supervised the medical residents activities, and agree with the H&P unless as otherwise noted. Assessment and Plan: The patient is an 84-year-old female with past medical history including emphysema, GERD, hypothyroidism, essential tremor, RLS, PTSD, who presents to the emergency department with worsening low back pain. Her pain developed relatively quickly and intensified from the morning of admission and throughout the day. She reports that the pain began acutely when she sat up in bed in the morning. She denies any recent trauma, recent travels or sick exposures. #Acute back pain- As noted, began when sitting up in bed the morning of admission Pain seemed to be more of a mechanical issue, but may be a GI component as well Continue heating pad and lidocaine patch Continuing gabapentin home dosing, and Tylenol as needed mild pain or fever From the ED the patient received the following: Normal saline 1 L IV bolus, fentanyl 25 mcg IV x 3, Tylenol 1 g IV, methylprednisolone 60 mg IV, and Lidoderm patch. Will hold any further methylprednisolone at this time Consult PT/OT Constipation/abdominal pain- CT scan does note thickened ileum, cecum and proximal ascending colon, with left pelvic fluid 2.9 x 2.7 x 2.5 cm. There is also mild fecal loading Bowel prep with MiraLAX, senna and milk of magnesia Pleural effusion/pericardial effusion/history of CAD and coronary artery stent- The patient will be admitted to telemetry for serial cardiac enzymes, serial EKG's, cardiac rhythm monitoring and a 2-D echocardiogram with Dopplers. Normal troponin x 2 Chronic medical conditions:- COPD with emphysema-continue Trelegy and albuterol HFA Hyperlipidemia-continue atorvastatin PTSD-continue trazodone and buspirone Hypothyroidism-continue levothyroxine GERD-continue pantoprazole PG Care Time/CCT Total # of Minutes Spent Total Time Spent with Patient: Total time spent is greater than 50% in coordination of care (as documented) at patient's floor/unit and/or counseling patient: Coding Level of Care Code 18608 INT INP/OBS CARE 3/75MIN Diagnoses Acute back pain M54.9 Constipation K59.00 Renal insufficiency N28.9 Anemia D64.9 Hypocalcemia E83.51 Pericardial effusion I31.39
[2025-02-08] MEDS ORDERED: ACETAMINOPHEN 500 MG TAB PO PRN (00:15)
[2025-02-08] MEDS ORDERED: MAGNESIUM HYDROXIDE SUSP 30 ML UDC PO PRN (00:15)
[2025-02-08] MEDS: CALCIUM CARBONATE 500 MG CHEWABLE TAB PO ONE (00:44)
[2025-02-08] MEDS: ACETAMINOPHEN 500 MG TAB PO SCH (00:44)
[2025-02-08] MEDS: HYDROmorphone INJ 0.5 MG/0.5 ML SYR IV STA (00:44)
[2025-02-08] MEDS ORDERED: ALBUTEROL HFA 8 GM INHALER INH PRN (01:04)
[2025-02-08] MEDS: LEVOTHYROXINE SODIUM 88 MCG TABLET PO SCH (05:12)
[2025-02-08 05:43] LABS: Hematocrit (blood only) 24.3 % (37.0-47.0); Hemoglobin 7.8 g/dl (12.0-16.0); Mean Corpuscular Hemoglobin 31.8 pg (25.0-34.0); Mean Corpuscular Hgb Conc 32.1 g/dL (32.0-36.0); Mean Corpuscular Volume 99.2 fL (80.0-100.0); Mean Platelet Volume 10.4 fL (9.4-12.4); Platelet Count 124 K/uL (130-400); RDW Coefficient of Variation 14.5 % (11.5-14.5); RDW Standard Deviation 52.3 fL (36.4-46.3); Red Blood Count 2.45 M/uL (4.20-5.40); White Blood Count 2.48 K/ul (4.8-10.8)
[2025-02-08 05:57] LABS: BUN Creatinine Ratio 22.7 (10-20); Calcium 7.7 mg/dl (8.6-10.3); Creatinine Clr Calc Pharmacy 30.5 ml/min; Potassium 4.5 mmol/L (3.5-5.1)
[2025-02-08 06:15] LABS: Ferritin 244.4 ng/ml (8-388)
[2025-02-08 06:20] LABS: Folate (Folic Acid),Ser orPlas > 22.30 ng/ml (>5.38)
[2025-02-08 06:21] LABS: Vitamin B12 511 pg/ml (180-914)
[2025-02-08] MEDS: ASPIRIN 81 MG ECTAB PO SCH (09:20)
[2025-02-08] MEDS: PENTOXIFYLLINE 400MG EXT REL TAB PO SCH (09:20)
[2025-02-08] MEDS: busPIRone 5 MG TAB PO SCH (09:21)
[2025-02-08] MEDS: ATORVASTATIN 20 MG TAB PO SCH (09:21)
[2025-02-08] MEDS: DONEPEZIL HCL 5 MG TAB PO SCH (09:22)
[2025-02-08] MEDS: PANTOprazole 40 MG TAB PO SCH (09:22)
[2025-02-08] MEDS: FLUTICASONE FUROATE 100MCG 14 PUFFS/INHALER INH SCH (09:22)
[2025-02-08] MEDS: CLOPIDOGREL BISULFATE 75 MG TAB PO SCH (09:22)
[2025-02-08] MEDS: UMECLIDINIUM/VILANTEROL 62.5/25MCG 7 PUFFS/INHALER INH SCH (09:22)
[2025-02-08] MEDS: POLYETHYLENE (MIRALAX) 17 GM PACK PO SCH (09:22)
[2025-02-08] MEDS: GABAPENTIN 400 MG CAP PO SCH (09:22)
--- NOTE | 2025-02-08 10:18 | Hospitalist Progress Note ---
Date of Service February 08, 2025 Assessment & Plan (1) Acute back pain: (2) Constipation: (3) Renal insufficiency: (4) Anemia: (5) Hypocalcemia: (6) Pericardial effusion: Plan 84-year-old female PMHx emphysema, GERD, hypothyroidism, essential tremor, RLS, PTSD presented via EMS for acute onset of lower back pain that began the morning of presentation to the hospital; midline pain without radiating symptoms. CT A/P on admission with thickening walled last ileal loop cecum and proximal ascending colon likely inflammatory/infectious, fecal loading in ascending and transverse colon, diverticulosis, L pelvic fluid collection (adnexal versus lymphocele) moderate sliding hiatal hernia type I, hepatomegaly simple cyst in liver, small gallstone), and mild bilateral pleural pericardial effusions. #Acute back pain Back pain starting morning of arrival, acute onset when sitting up in bed; trialed multiple doses of Tylenol with minimal relief, maximum pain "20/10". No recent trauma. No complaints of numbness/tingling, saddle anesthesia, or incontinence of bowel/bladder (from baseline incontinence). Without midline tenderness on exam, no skin changes. Suspect mainly musculoskeletal in nature but unclear if some component is GI related - Pain management: scheduled Tylenol, Dilaudid 0.25 mg IV q6h PRN breakthrough pain (cautious use of narcotics with ongoing constipation), home dose of gabapentin, heating pad and lidocaine patch - Defer further steroids given ? infectious etiology as identified on CTAP. Defer NSAIDs given concern for occult GI bleeding - PT/OT ordered- appreciate assistance #Constipation/Abdominal pain Last BM between 2-5 days [employer], was "very dark brown" in color but normal consistency; does admit to some abdominal pain and with clear tenderness to palpation of RUQ. No N/V. Was to follow with GI outpatient on 02/09/2025. - Most recent CT A/P with fecal load of ascending and transverse colon, thickening within colon with mild peripheral fat stranding, probable inflammatory/infectious etiology - Concern for stercoral colitis, started Zosyn 4.5 mg IV q8h. Lipase WNL; LFTs WNL - Fecal occult pending - Miralax + Senna rod, MoM prn - GI consulted - appreciate input + recs - NPO until improvement from bowel regimen. Started NSS IV fluid at maintenance rate #Anemia / Pancytopenia Admitting H&H 8.5/26.3; most recent labs from 2019 were 12.1/38.7; denies overt bleeding but states that her stools were black in color not long ago and her most recent stools were "very dark brown." Does have history of anemia but patient unclear of etiology. Follows with oncologist for history of R breast CA 3 years ago s/p R mastectomy, who also manages her anemia and outpatient iron transfusions. - CTAP w/ hepatomegaly; LFTs WNL - Blood type A positive, antibody screen negative - Iron panel most consistent with anemia of chronic disease. B12 and folate WNL - Fecal occult pending - TSH WNL, peripheral smear pending - Obtain outpatient hematology notes #Pericardial effusion/CAD s/p stent ? infectious/inflammatory etiology; Of note, with history of stent placement, on DAPT. - EKG at admission reports septal infarct; troponin x 2 WNL; patient denies chest pain during evaluation - EKG prn for chest pain - CTAP with pericardial effusion reported - Echocardiogram with EF 60-65%, small pericardial effusion, no echocardiographic indication of cardiac tamponade, grade 1 diastolic dysfunction Recommend repeat echo in 1 month #Renal insufficiency Likely secondary to renal hypoperfusion; poor oral intake per patient - UA negative for infection. Cr 1.23 on admission, now down to 0.97 after 1 L NSS - Hold furosemide - Bladder scan prn #Hypocalcemia Asymptomatic currently. Given Calcium Carbonate x 1 on admission - Ca 8.5, corrected calcium for hypoalbuminemia at 9.0 - Continue to monitor #COPD/pulmonary emphysema- Albuterol inhaler as needed, Trelegy. Wears 2 L O2 HS, RA during the day #HLD- Atorvastatin #PTSD- Trazodone, buspirone #Hypothyroidism- Levothyroxine #GERD- Pantoprazole Dispo: Continued inpatient stay to complete workup and treatment VTE prophylaxis: SCDs- consider chemical prophylaxis pending complete workup/if prolonged stay Ordered peripheral smear, TSH Adjusted diet and started IV fluids Started Zosyn IV Updated caregiver at bedside Admission and Anticipated Discharge Date Admission Date: February 07, 2025 Supervising Physician Co-Signing Physician Notes PILAR Supervision Note: I did not personally see or examine the patient today, but I verified all blood points of PILAR Loyola's assessment and plan with the following exceptions/additions: None Subjective Patient seen and evaluated at bedside with her caregiver, Yenifer, present. She reports 7/10 lower back pain currently. She is unable to describe the pain only noting "it's all over." She denies radiating symptoms. She does also note moderate abdominal pain "all over." She states that she deals with chronic constipation at home and intermittently has back pain, but states this pain is different. She reports she had a headache in the ED yesterday that is now resolved. Denies nausea or vomiting. She has not had a bowel movement yet but is passing a lot of gas and feels she will have a BM soon. We discussed cautious use of narcotics given her constipation and further recommendations from GI. Physical Exam Physical Exam: General: No acute distress, nondiaphoretic. Cardiac: Regular rate and rhythm without murmurs gallops or rubs. Pulm: Clear to auscultation bilaterally without wheezes, rales or rhonchi. Normal respiratory effort. 97% on room air. Abdominal: Soft, nondistended. Tender to palpation throughout abdomen, but more prominent in lower quadrants. Bowel sounds present. Neuro: A&O x3. Resting tremor and head tremor at baseline. No focal neurological deficits. MSK: Tenderness to palpation of lumbar paraspinal muscles bilaterally. No spinal kayla deformities. No peripheral edema. Results & Data Results & Data Vital Signs (Past 12 Hours) Vital Signs Temp Pulse Pulse Pulse Resp BP BP 02/08/25 07:47 98.1 F 68 16 02/08/25 05:37 64 02/08/25 04:18 97.9 F 68 20 130/48 L 02/08/25 00:57 02/08/25 00:57 97.9 F 84 20 172/68 H 02/08/25 00:21 84 17 02/08/25 00:16 81 02/08/25 00:15 97.9 F 84 20 172/68 H 02/07/25 23:07 81 02/07/25 22:07 77 23 158/71 H BP Pulse Ox O2 Del Method O2 Flow Rate 02/08/25 07:47 116/48 L 98 Nasal Cannula 2 02/08/25 05:37 02/08/25 04:18 97 Nasal Cannula 2 02/08/25 00:57 Room Air 02/08/25 00:57 96 Room Air 02/08/25 00:21 98 Room Air 02/08/25 00:16 02/08/25 00:15 96 Room Air 02/07/25 23:07 02/07/25 22:07 95 Room Air Laboratory Results Reviewed CBC with differential Reviewed BMP Reviewed iron panel Reviewed UA Diagnostic Findings Reviewed CT A/P Reviewed echocardiogram PG Care Time/CCT Total # of Minutes Spent Total Time Spent with Patient: Total time spent is greater than 50% in coordination of care (as documented) at patient's floor/unit and/or counseling patient: Coding Level of Care Code 92087 SUB INP/OBS CARE 3/50MIN Diagnoses Acute back pain M54.9 Constipation K59.00 Renal insufficiency N28.9 Anemia D64.9 Hypocalcemia E83.51 Pericardial effusion I31.39
[2025-02-08 10:31] LABS: Thyroid Stimulating Hormone 0.409 uIu/ml (0.300-4.500)
--- NOTE | 2025-02-08 10:46 | Gastrointestinal Consultation ---
Date of Consultation February 08, 2025 Assessment & Plan (1) Abdominal pain: Pleasant elderly lady with back pain. I am not certain that her colon can be the cause of the amount of back pain that she is complaining of. Also back pain related to constipation does not usually worsen with motion. It is possible she has an acute infectious issue causing the CT changes and that could also cause her some back pain. That should resolve on her own over the next day or so if it is real. I would like to see how she does with bowel movement and whether it affects her back at all. She could take a clean out and that would answer a lot of those questions but lets see if what she feels now will lead to spontaneous bowel movement. If we consider colonoscopy it would have to be delayed as she is on plavix. I will follow with you History of Present Illness Reason for Consultation: abnormal CT Attending Physician: Alexia Drew MD History of Present Illness 84 year old female admitted with back pain. She has chronic back pain but it has gotten worse over the past several days. She says it hurts when she moves around. She doesn't know if having a bowel movement affects this pain because she hasn't had one yet (although she is getting ready to try to have one). She does have quite a bit of gas. She says she has "felt warm and then felt cold" but doesn't know if she has had a fever or not. She does not have any nausea or vomiting. CT scan was done which shows "increase in stool burden in the transverse colon and thickened wall of the ileum and proximal colon". She has not had a colonoscopy in years but was scheduled to see GI in [place] on Sunday to discuss one. Of note for several days in the past her stools were dark. She does get iron infusions but she wasn't really clear as to whether she takes oral iron. She is on plavix Allergies Allergy/AdvReac Type Severity Reaction Status Date / Time No Known Allergies Allergy Verified 02/07/25 18:35 Home Medications Medication Instructions Recorded Confirmed Type albuterol sulfate 90 mcg/actuation 2 puff inhalation Q4H PRN 07/07/19 02/07/25 History aerosol inhaler Shortness Of Breath Or Wheezing acetaminophen 500 mg tablet 500 - 1,000 mg PO Q6H PRN 02/07/25 02/07/25 History PAIN/FEVER alendronate 70 mg tablet 70 mg PO WK 02/07/25 02/07/25 History aspirin 81 mg tablet,delayed 81 mg PO DAILY 02/07/25 02/07/25 History release atorvastatin 20 mg tablet 20 mg PO DAILY 02/07/25 02/07/25 History buspirone 10 mg tablet 10 mg PO TID 02/07/25 02/07/25 History clopidogrel 75 mg tablet 75 mg PO DAILY 02/07/25 02/07/25 History donepezil 5 mg tablet 5 mg PO DAILY 02/07/25 02/07/25 History fluticasone fur. 100 mcg-umeclid 1 inh inhalation DAILY 02/07/25 02/07/25 History 62.5 mcg-vilant 25 mcg inhalat.powder (Trelegy Ellipta) furosemide 20 mg tablet 20 mg PO DAILY PRN LEG SWELLING 02/07/25 02/07/25 History gabapentin 400 mg capsule 400 mg PO TID 02/07/25 02/07/25 History levothyroxine 88 mcg tablet 88 mcg PO DAILYBB 02/07/25 02/07/25 History multivitamin 1 tab PO DAILY 02/07/25 02/07/25 History pantoprazole 40 mg tablet,delayed 40 mg PO DAILY 02/07/25 02/07/25 History release pentoxifylline 400 mg 400 mg PO TIDM 02/07/25 02/07/25 History tablet,extended release trazodone 50 mg tablet 50 mg PO HS 02/07/25 02/07/25 History Patient History Medical History DJD (degenerative joint disease) of cervical spine Social History Smoking Status: Former smoker Hx Alcohol Use: No Hx Substance Use: No Current Living Situation: Other Current Living Situation Comment: lives at home with caregivers Feels Safe at Home: Yes Safety Concerns: Feels Safe At This Time Assistive Devices: Walker Review of Systems Review of Systems: All systems reviewed & are unremarkable except as noted in HPI & below Physical Exam Physical Exam: Elderly female with tremor in no distress Constitutional: WD/WN, vitals as above Neck: trachea midline, no thyromegaly Respiratory: normal respiratory effort, lungs clear to auscultation Cardiovascular: RRR, no murmur, no edema Gastrointestinal (Abdomen): Inspection/Auscultation: abdomen normal to inspection; abdomen not distended Percussion/Palpation: + abdomen tender (lower abdomen) and abdomen soft Results & Data Vital Signs (Past 12 Hours) Vital Signs Temp Pulse Pulse Pulse Resp BP BP 02/08/25 07:47 36.7 C 68 16 02/08/25 05:37 64 02/08/25 04:18 36.6 C 68 20 130/48 L 02/08/25 00:57 02/08/25 00:57 36.6 C 84 20 172/68 H 02/08/25 00:21 84 17 02/08/25 00:16 81 02/08/25 00:15 36.6 C 84 20 172/68 H 02/07/25 23:07 81 BP Pulse Ox O2 Del Method O2 Flow Rate 02/08/25 07:47 116/48 L 98 Nasal Cannula 2 02/08/25 05:37 02/08/25 04:18 97 Nasal Cannula 2 02/08/25 00:57 Room Air 02/08/25 00:57 96 Room Air 02/08/25 00:21 98 Room Air 02/08/25 00:16 02/08/25 00:15 96 Room Air 02/07/25 23:07 Laboratory Results 02/08/25 02/08/25 02/07/25 Range/Units 05:18 01:19 21:37 WBC 2.48 L (4.8-10.8) K/ul RBC 2.45 L (4.20-5.40) M/uL Hgb 7.8 L (12.0-16.0) g/dl POC Hgb (12.0-16.0) g/dl Hct 24.3 L (37.0-47.0) % POC Hct (37-47) % MCV 99.2 (80.0-100.0) fL MCH 31.8 (25.0-34.0) pg MCHC 32.1 (32.0-36.0) g/dL RDW Std Deviation 52.3 H (36.4-46.3) fL RDW Coeff of Blanca 14.5 (11.5-14.5) % Plt Count 124 L (130-400) K/uL MPV 10.4 (9.4-12.4) fL Immature Gran % (Auto) % Neut % (Auto) % Lymph % (Auto) % Kaufman % (Auto) % Eos % (Auto) % Baso % (Auto) % Neut # (Auto) (1.40-6.50) K/uL Lymph # (Auto) (1.20-3.40) K/uL Kaufman # (Auto) (0.11-0.59) K/uL Eos # (Auto) (0.00-0.50) K/uL Baso # (Auto) (0.00-0.20) K/uL Immature Gran # (Auto) (0.01-0.20) K/uL Peripher Smr Path Cons Pending POC Sodium (135-144) mmol/L Sodium 141 (136-145) mmol/L POC Potassium (3.3-5.0) mmol/L Potassium 4.5 (3.5-5.1) mmol/L POC Chloride (101-112) mmol/L Chloride 111 H (98-107) mmol/L Carbon Dioxide 26 (21-32) mmol/L POC Total CO2 (24-31) mmol/L Anion Gap 4 (3-11) POC Anion Gap (16-25) mmol/L POC BUN (7-18) mg/dl BUN 22 (6-23) mg/dl Creatinine 0.97 (0.6-1.2) mg/dl POC Creatinine (0.6-1.3) mg/dl Est Cr Clr Drug Dosing 30.5 ml/min eGFR 57.26 BUN/Creatinine Ratio 22.7 H (10-20) Glucose 138 H (70-99(Fasting)) mg/dl POC Glucose (other) (70-99) mg/dl Calcium 7.7 L (8.6-10.3) mg/dl POC Ioniz Calcium Amarjit (1.12-1.32) mmol/l Iron 32 L (35-150) mcg/dl TIBC 171 L (250-450) mcg/dl Transferrin 122 L (200-360) mg/dl Transferrin % Sat 19 (15-50) % Ferritin 244.4 (8-388) ng/ml Total Bilirubin (0.2-1.0) mg/dl AST (13-39) U/L ALT (7-52) U/L Alkaline Phosphatase (34-104) U/L Troponin I High Sens (0-14) pg/ml Total Protein (6.0-8.3) gm/dl Albumin (3.4-5.0) gm/dl Globulin (2.5-4.0) gm/dl Albumin/Globulin Ratio (0.9-2) Lipase (11-82) U/L Vitamin B12 511 (180-914) pg/ml Folate > 22.30 (>5.38) ng/ml TSH 0.409 (0.300-4.500) uIu/ml Urine Color Yellow Urine Appearance Clear (Clear) Urine pH 5.5 (4.5-7.5) Ur Specific Sutton 1.010 (1.000-1.030) Urine Protein Negative (Negative) Urine Glucose (UA) Negative (Negative) Urine Ketones Negative (Negative) Urine Blood Trace-intact H (Negative) Urine Nitrite Negative (Negative) Urine Bilirubin Negative (Negative) Urine Urobilinogen Negative (Negative) Ur Leukocyte Esterase Negative (Negative) Urine RBC 3-5 H (0-2) /hpf Urine WBC 0-5 (0-5) /hpf Ur Epithelial Cells 6-10 H (0-2) /hpf Urine Bacteria None Seen (None Seen) Hyaline Casts P (None Presnt) /lpf Blood Type A Positive Antibody Screen NEGATIVE 02/07/25 02/07/25 02/07/25 Range/Units 20:56 19:28 18:11 WBC (4.8-10.8) K/ul RBC (4.20-5.40) M/uL Hgb (12.0-16.0) g/dl POC Hgb 8.8 L (12.0-16.0) g/dl Hct (37.0-47.0) % POC Hct 26 L (37-47) % MCV (80.0-100.0) fL MCH (25.0-34.0) pg MCHC (32.0-36.0) g/dL RDW Std Deviation (36.4-46.3) fL RDW Coeff of Blanca (11.5-14.5) % Plt Count (130-400) K/uL MPV (9.4-12.4) fL Immature Gran % (Auto) % Neut % (Auto) % Lymph % (Auto) % Kaufman % (Auto) % Eos % (Auto) % Baso % (Auto) % Neut # (Auto) (1.40-6.50) K/uL Lymph # (Auto) (1.20-3.40) K/uL Kaufman # (Auto) (0.11-0.59) K/uL Eos # (Auto) (0.00-0.50) K/uL Baso # (Auto) (0.00-0.20) K/uL Immature Gran # (Auto) (0.01-0.20) K/uL Peripher Smr Path Cons POC Sodium 142 (135-144) mmol/L Sodium (136-145) mmol/L POC Potassium 4.3 (3.3-5.0) mmol/L Potassium (3.5-5.1) mmol/L POC Chloride 106 (101-112) mmol/L Chloride (98-107) mmol/L Carbon Dioxide (21-32) mmol/L POC Total CO2 25 (24-31) mmol/L Anion Gap (3-11) POC Anion Gap 17.0 (16-25) mmol/L POC BUN 22 H (7-18) mg/dl BUN (6-23) mg/dl Creatinine (0.6-1.2) mg/dl POC Creatinine 1.5 H (0.6-1.3) mg/dl Est Cr Clr Drug Dosing ml/min eGFR BUN/Creatinine Ratio (10-20) Glucose (70-99(Fasting)) mg/dl POC Glucose (other) 119 H (70-99) mg/dl Calcium (8.6-10.3) mg/dl POC Ioniz Calcium Amarjit 1.17 (1.12-1.32) mmol/l Iron (35-150) mcg/dl TIBC (250-450) mcg/dl Transferrin (200-360) mg/dl Transferrin % Sat (15-50) % Ferritin (8-388) ng/ml Total Bilirubin (0.2-1.0) mg/dl AST (13-39) U/L ALT (7-52) U/L Alkaline Phosphatase (34-104) U/L Troponin I High Sens 9.4 7.5 (0-14) pg/ml Total Protein (6.0-8.3) gm/dl Albumin (3.4-5.0) gm/dl Globulin (2.5-4.0) gm/dl Albumin/Globulin Ratio (0.9-2) Lipase (11-82) U/L Vitamin B12 (180-914) pg/ml Folate (>5.38) ng/ml TSH (0.300-4.500) uIu/ml Urine Color Urine Appearance (Clear) Urine pH (4.5-7.5) Ur Specific Sutton (1.000-1.030) Urine Protein (Negative) Urine Glucose (UA) (Negative) Urine Ketones (Negative) Urine Blood (Negative) Urine Nitrite (Negative) Urine Bilirubin (Negative) Urine Urobilinogen (Negative) Ur Leukocyte Esterase (Negative) Urine RBC (0-2) /hpf Urine WBC (0-5) /hpf Ur Epithelial Cells (0-2) /hpf Urine Bacteria (None Seen) Hyaline Casts (None Presnt) /lpf Blood Type Antibody Screen 02/07/25 Range/Units 18:06 WBC 3.86 L (4.8-10.8) K/ul RBC 2.66 L (4.20-5.40) M/uL Hgb 8.5 L (12.0-16.0) g/dl POC Hgb (12.0-16.0) g/dl Hct 26.3 L (37.0-47.0) % POC Hct (37-47) % MCV 98.9 (80.0-100.0) fL MCH 32.0 (25.0-34.0) pg MCHC 32.3 (32.0-36.0) g/dL RDW Std Deviation 52.2 H (36.4-46.3) fL RDW Coeff of Blanca 14.3 (11.5-14.5) % Plt Count 132 (130-400) K/uL MPV 10.8 (9.4-12.4) fL Immature Gran % (Auto) 0.5 % Neut % (Auto) 66.6 % Lymph % (Auto) 20.2 % Kaufman % (Auto) 8.3 % Eos % (Auto) 3.6 % Baso % (Auto) 0.8 % Neut # (Auto) 2.57 (1.40-6.50) K/uL Lymph # (Auto) 0.78 L (1.20-3.40) K/uL Kaufman # (Auto) 0.32 (0.11-0.59) K/uL Eos # (Auto) 0.14 (0.00-0.50) K/uL Baso # (Auto) 0.03 (0.00-0.20) K/uL Immature Gran # (Auto) 0.02 (0.01-0.20) K/uL Peripher Smr Path Cons POC Sodium (135-144) mmol/L Sodium 143 (136-145) mmol/L POC Potassium (3.3-5.0) mmol/L Potassium 4.3 (3.5-5.1) mmol/L POC Chloride (101-112) mmol/L Chloride 109 H (98-107) mmol/L Carbon Dioxide 30 (21-32) mmol/L POC Total CO2 (24-31) mmol/L Anion Gap 4 (3-11) POC Anion Gap (16-25) mmol/L POC BUN (7-18) mg/dl BUN 24 H (6-23) mg/dl Creatinine 1.23 H (0.6-1.2) mg/dl POC Creatinine (0.6-1.3) mg/dl Est Cr Clr Drug Dosing 24.0 ml/min eGFR 43.06 BUN/Creatinine Ratio 19.5 (10-20) Glucose 123 H (70-99(Fasting)) mg/dl POC Glucose (other) (70-99) mg/dl Calcium 8.5 L (8.6-10.3) mg/dl POC Ioniz Calcium Amarjit (1.12-1.32) mmol/l Iron (35-150) mcg/dl TIBC (250-450) mcg/dl Transferrin (200-360) mg/dl Transferrin % Sat (15-50) % Ferritin (8-388) ng/ml Total Bilirubin 0.2 (0.2-1.0) mg/dl AST 17 (13-39) U/L ALT 11 (7-52) U/L Alkaline Phosphatase 58 (34-104) U/L Troponin I High Sens (0-14) pg/ml Total Protein 6.1 (6.0-8.3) gm/dl Albumin 3.4 (3.4-5.0) gm/dl Globulin 2.7 (2.5-4.0) gm/dl Albumin/Globulin Ratio 1.3 (0.9-2) Lipase 26 (11-82) U/L Vitamin B12 (180-914) pg/ml Folate (>5.38) ng/ml TSH (0.300-4.500) uIu/ml Urine Color Urine Appearance (Clear) Urine pH (4.5-7.5) Ur Specific Sutton (1.000-1.030) Urine Protein (Negative) Urine Glucose (UA) (Negative) Urine Ketones (Negative) Urine Blood (Negative) Urine Nitrite (Negative) Urine Bilirubin (Negative) Urine Urobilinogen (Negative) Ur Leukocyte Esterase (Negative) Urine RBC (0-2) /hpf Urine WBC (0-5) /hpf Ur Epithelial Cells (0-2) /hpf Urine Bacteria (None Seen) Hyaline Casts (None Presnt) /lpf Blood Type Antibody Screen Diagnostic Findings Abdomen/Pelvis CT 02/07/25 17:50 EXAM: CT abd pelvis IV con only CLINICAL HISTORY: LBP/midline, periumbilical/diffuse ab pain. TECHNIQUE: CT of the abdomen and pelvis was performed with contrast, with the following protocol: axial images with, and reconstructed coronal and sagittal images. One of the following dose reduction techniques was utilized for this exam: Automated exposure control, adjustment of the mA and/or kV according to patient size, and use of iterative reconstruction. COMPARISON: No prior studies available for comparison. FINDINGS: Mild bilateral pleural and pericardial effusion. Abdomen: Moderate sliding hiatal hernia (type I). Liver: Hepatomegaly, measuring 17 cm at the largest craniocaudal span in the right lobe. There is a 1.0 cm simple cyst in segment IV. No focal lesions, cysts, or masses were identified. Hepatic vasculature and biliary ducts are unremarkable. Gallbladder and Biliary System: The gallbladder is normal in size and shape. There is a 0.5 cm calcific stone in the fundus. No wall thickening or pericholecystic fluid were identified. The common bile duct is normal in caliber without dilation. Pancreas: Pancreatic head, body, and tail are visualized and appear normal in size and density. No pancreatic masses or calcifications were noted. The pancreatic duct is not dilated. Spleen: Normal in size, shape, and density. No splenic lesions or masses were identified. Kidneys and Adrenal Glands: Both kidneys are normal in size, shape, and position. Cortical thickness is within normal limits. No renal calculi or hydronephrosis. Mild hydroureter noted on the left side in the two upper thirds. Adrenal glands are unremarkable with no evidence of masses or hyperplasia. Pelvis: Urinary Bladder: Normal in contour and wall thickness. No intraluminal lesions identified. Uterus and Ovaries: Not visualized but no gross abnormalities noted. Peritoneal and Retroperitoneal Structures: Fluid collection noted in the left side of the pelvis, measuring 2.9 x 2.7 x 2.5 cm. No lymphadenopathy was noted. Atherosclerotic calcification of the aorta and major branches is seen. Bowel: Mild thickening and edema of the wall in the last ileal loop, the cecum and proximal ascending colon (Series 300 Image 25/90, Series 2 Image 49/84), however they are normal in caliber. Associated mild fat stranding is also noted. Increased stool density in the ascending but mainly in the transverse colon. Marked sigmoid colon diverticulosis without CT evidence of acute diverticulitis. The appendix is not visualized. No evidence of bowel obstruction. Bones and Soft Tissues: Pelvic bones and soft tissues are unremarkable. No fractures or abnormal masses were identified. Bony island in the left femur. IMPRESSION: Thickened-walled last ileal loop, cecum and proximal ascending colon with mild peripheral fat stranding, probable inflammatory/ infectious etiology. Fecal load of the ascending and transverse colon. Noncomplicated sigmoid colon diverticulosis. Left pelvic fluid collection measuring 2.9 x 2.7 x2.5 cm, probable adnexal versus lymphocele (if history of oophorectomy), with upstream mild left hydroureter. Moderate sliding hiatal hernia (type I). Hepatomegaly, 17 cm, and a 1.0 cm simple cyst in the liver. A small gallstone in the fundus. Mild bilateral pleural and pericardial effusion. Further evaluation with chest CT recommended if clinically warranted. Correlate clinically. Electronically signed by Blair Villavicencio 02-07-2025 8:43 PM (1) Abdominal pain Abdominal location: periumbilical Qualified Code(s): R10.33 - Periumbilical pain
[2025-02-08] MEDS: 4.5GM X1 IV STA (11:08)
[2025-02-08] MEDS: HYDROmorphone INJ 0.5 MG/0.5 ML SYR IV PRN (11:09)
[2025-02-08] MEDS: PIPERACILLIN/TAZOBACTAM 4.5 GM/100 ML BAG IV SCH (15:01)
[2025-02-08] MEDS: SODIUM CHLORIDE 0.9% 1,000 ML IV SCH (17:45)
[2025-02-08] MEDS: traZODone HCL 50 MG TAB PO SCH (20:16)
[2025-02-08] MEDS: SENNA 8.6 MG TAB PO SCH (20:17)
[2025-02-08] MEDS: ONDANSETRON INJ 2 MG/ML 2 ML VIAL IV PRN (20:19)
[2025-02-09 06:19] LABS: Hemoglobin 7.4 g/dl (12.0-16.0); Mean Corpuscular Hemoglobin 32.3 pg (25.0-34.0); Mean Corpuscular Hgb Conc 32.2 g/dL (32.0-36.0); Mean Corpuscular Volume 100.4 fL (80.0-100.0); Mean Platelet Volume 10.8 fL (9.4-12.4); Platelet Count 120 K/uL (130-400); RDW Coefficient of Variation 14.6 % (11.5-14.5); RDW Standard Deviation 54.2 fL (36.4-46.3); Red Blood Count 2.29 M/uL (4.20-5.40); White Blood Count 3.02 K/ul (4.8-10.8)
[2025-02-09 06:28] LABS: BUN Creatinine Ratio 15.4 (10-20); Calcium 7.5 mg/dl (8.6-10.3); Potassium 4.4 mmol/L (3.5-5.1)
[2025-02-09 06:34] LABS: Basophils # (auto) 0.02 K/uL (0.00-0.20); Basophils % (auto) 0.7 %; Eosinophils % (auto) 3.3 %; Immature Granulocytes # (auto) 0.01 K/uL (0.01-0.20); Immature Granulocytes % (auto) 0.3 %; Lymphocytes # (auto) 1.23 K/uL (1.20-3.40); Lymphocytes % (auto) 40.7 %; Monocytes # (auto) 0.23 K/uL (0.11-0.59); Monocytes % (auto) 7.6 %; Neutrophils # (auto) 1.43 K/uL (1.40-6.50); Neutrophils % (auto) 47.4 %; RBC Morphology Unremarkable
--- NOTE | 2025-02-09 11:34 | Gastroenterology Progress Note ---
Date of Service February 09, 2025 Assessment & Plan (1) Abdominal pain: Plan: She seems to be doing a lot better now. I told her she can just take warm prune juice every day at home. There is no reason from my standpoint that she can't go home. She wants to go home Admission and Anticipated Discharge Date Admission Date: February 07, 2025 Subjective Looks and feels much better. Had a big bowel movement after "warm prune juice". Still with some back pain but sitting in a chair happy now. Physical Exam Physical Exam: She looks very happy Constitutional: WD/WN, vitals as above Results & Data Vital Signs (Past 12 Hours) Vital Signs Temp Pulse Pulse Resp BP BP Pulse Ox 02/09/25 09:12 02/09/25 07:47 36.4 C L 59 L 20 99/45 L 97 02/09/25 06:38 65 02/09/25 04:31 36.5 C 65 20 107/66 99 02/09/25 00:20 36.4 C L 60 20 146/53 H 92 02/09/25 00:00 54 L O2 Del Method 02/09/25 09:12 Room Air 02/09/25 07:47 Room Air 02/09/25 06:38 02/09/25 04:31 Room Air 02/09/25 00:20 Room Air 02/09/25 00:00 (1) Abdominal pain Abdominal location: periumbilical Qualified Code(s): R10.33 - Periumbilical pain
[2025-02-09] MEDS: PROMETHAZINE HCL 12.5 MG/10 ML UDP PO STA (11:39)
--- NOTE | 2025-02-09 11:48 | Hospitalist Progress Note ---
Date of Service February 09, 2025 Assessment & Plan (1) Acute back pain: (2) Constipation: (3) Renal insufficiency: (4) Anemia: (5) Hypocalcemia: (6) Pericardial effusion: Plan 84-year-old female PMHx emphysema, GERD, hypothyroidism, essential tremor, RLS, PTSD presented via EMS for acute onset of lower back pain that began the morning of presentation to the hospital; midline pain without radiating symptoms. CT A/P on admission with thickening walled last ileal loop cecum and proximal ascending colon likely inflammatory/infectious, fecal loading in ascending and transverse colon, diverticulosis, L pelvic fluid collection (adnexal versus lymphocele) moderate sliding hiatal hernia type I, hepatomegaly simple cyst in liver, small gallstone), and mild bilateral pleural pericardial effusions. #Acute back pain Back pain starting morning of arrival, acute onset when sitting up in bed; trialed multiple doses of Tylenol with minimal relief, maximum pain "20/10". No recent trauma. No complaints of numbness/tingling, saddle anesthesia, or incontinence of bowel/bladder (from baseline incontinence). Without midline tenderness on exam, no skin changes. Suspect mainly musculoskeletal in nature but unclear if some component is GI related - Pain management: scheduled Tylenol, Dilaudid 0.25 mg IV q6h PRN breakthrough pain (cautious use of narcotics with ongoing constipation), home dose of gabapentin, heating pad and lidocaine patch - Deferred further steroids given ? infectious etiology as identified on CTAP. Deferred NSAIDs given concern for occult GI bleeding - PT/OT ordered-recommend inpatient rehab #Constipation/Abdominal pain Last BM between 2-5 days [employer], was "very dark brown" in color but normal consistency; does admit to some abdominal pain and with clear tenderness to palpation of RUQ. No N/V. Was to follow with GI outpatient on 02/09/2025. - Most recent CT A/P with fecal load of ascending and transverse colon, thickening within colon with mild peripheral fat stranding, probable inflammatory/infectious etiology -Treated empirically with Zosyn IV due to concern for stercoral colitis. Antibiotics now discontinued given bowel movement, lipase WNL, LFTs WNL - Miralax + Senna rod, MoM prn. Reportedly large bowel movement overnight, but fecal occult was not collected. Fecal occult pending - GI consulted - appreciate input + recs - Advanced to full liquids now with plan to advance to heart healthy diet 4/ AM - Consider outpatient colonoscopy #Anemia / Pancytopenia Admitting H&H 8.5/26.3; most recent labs from 2019 were 12.1/38.7; denies overt bleeding but states that her stools were black in color not long ago and her most recent stools were "very dark brown." Does have history of anemia but patient unclear of etiology. Follows with oncologist for history of R breast CA 3 years ago s/p R mastectomy, who also manages her anemia and outpatient iron transfusions. - CTAP w/ hepatomegaly; LFTs WNL - Blood type A positive, antibody screen negative - Iron panel most consistent with anemia of chronic disease. B12 and folate WNL - Fecal occult pending - TSH WNL, peripheral smear with nonspecific pancytopenia, no overt myelodysplasia or hemolysis - Obtain outpatient hematology notes #Pericardial effusion/CAD s/p stent ? infectious/inflammatory etiology; Of note, with history of stent placement, on DAPT. - EKG at admission reports septal infarct; troponin x 2 WNL; patient denies chest pain during evaluation - EKG prn for chest pain - CTAP with pericardial effusion reported - Echocardiogram with EF 60-65%, small pericardial effusion, no echocardiographic indication of cardiac tamponade, grade 1 diastolic dysfunction Recommend repeat echo in 1 month #Renal insufficiency Likely secondary to renal hypoperfusion; poor oral intake per patient - UA negative for infection - Hold furosemide - Bladder scan prn #Hypocalcemia Asymptomatic currently. Given Calcium Carbonate x 1 on admission - Ca 8.5, corrected calcium for hypoalbuminemia at 9.0 - Continue to monitor #COPD/pulmonary emphysema- Albuterol inhaler as needed, Trelegy. Wears 2 L O2 HS, RA during the day #HLD- Atorvastatin #PTSD- Trazodone, buspirone #Hypothyroidism- Levothyroxine #GERD- Pantoprazole Dispo: Continued inpatient stay to complete workup and treatment. PT/OT recommending inpatient rehab. Case management following VTE prophylaxis: SCDs- consider chemical prophylaxis pending complete workup/if prolonged stay Updated caregiver at bedside Discontinued antibiotics Advanced diet Admission and Anticipated Discharge Date Admission Date: February 07, 2025 Subjective Patient seen and evaluated in bedside chair with her caregiver and RN present. Patient reports she is feeling well and wants to go home. Caregiver and RN report that she was complaining of 9/10 pain this morning and was nauseous. Patient notes she is just eager to return home to her cat. We discussed that she is still requiring IV pain medication and we are advancing her diet, so the concern that return home would result in quick return to the hospital. She is understanding and agreeable to remaining inpatient. Patient notes that she was nauseated when OOB this morning, likely due to increased pain. She reports that her back pain is better controlled now since receiving medications. She notes her abdominal pain has improved since having a BM last night. She reports it was significant in size but she could not tell me the color. Fecal occult was not obtained with that BM. She states that she is hungry and wants her diet advanced past clear liquids. We discussed the result of her peripheral smear and GI's recommendations. No additional complaints or concerns at this time. Physical Exam Physical Exam: General: No acute distress, nondiaphoretic. Frail elderly female. Cardiac: Regular rate and rhythm without murmurs gallops or rubs. Pulm: Clear to auscultation bilaterally without wheezes, rales or rhonchi. Normal respiratory effort. 97% on room air. Abdominal: Soft, nondistended, nontender. Bowel sounds present. Neuro: A&O x3. Resting tremor and head tremor at baseline. No focal neurological deficits. MSK: Tenderness to palpation of lumbar paraspinal muscles bilaterally R>L, less tender than yesterday. No spinal kayla deformities. No peripheral edema. Results & Data Results & Data Vital Signs (Past 12 Hours) Vital Signs Temp Pulse Pulse Resp BP BP Pulse Ox 02/09/25 09:12 02/09/25 07:47 97.5 F L 59 L 20 99/45 L 97 02/09/25 06:38 65 02/09/25 04:31 97.7 F 65 20 107/66 99 02/09/25 00:20 97.5 F L 60 20 146/53 H 92 02/09/25 00:00 54 L O2 Del Method 02/09/25 09:12 Room Air 02/09/25 07:47 Room Air 02/09/25 06:38 02/09/25 04:31 Room Air 02/09/25 00:20 Room Air 02/09/25 00:00 Laboratory Results Reviewed CBC with differential Reviewed peripheral smear Reviewed BMP PG Care Time/CCT Total # of Minutes Spent Total Time Spent with Patient: Total time spent is greater than 50% in coordination of care (as documented) at patient's floor/unit and/or counseling patient: Coding Level of Care Code 22611 SUB INP/OBS CARE 3/50MIN Diagnoses Acute back pain M54.9 Constipation K59.00 Renal insufficiency N28.9 Anemia D64.9 Hypocalcemia E83.51 Pericardial effusion I31.39
--- NOTE | 2025-02-09 14:06 | Electrocardiogram Report ---
Test Reason : Blood Pressure : */* mmHG Vent. Rate : 88 BPM Atrial Rate : 88 BPM P-R Int : 186 ms QRS Dur : 100 ms QT Int : 398 ms P-R-T Axes : 74 -22 109 degrees QTcB Int : 481 ms Normal sinus rhythm Possible Old Septal infarct Abnormal ECG No previous ECGs available Confirmed by Rafal Velasquez ([id number]) on 02/09/2025 2:05:59 PM Referred By: REFERRED SELF Confirmed By: Rafal Velasquez
[2025-02-10 06:48] LABS: Hemoglobin 7.4 g/dl (12.0-16.0); Mean Corpuscular Hemoglobin 32.6 pg (25.0-34.0); Mean Corpuscular Hgb Conc 32.2 g/dL (32.0-36.0); Mean Corpuscular Volume 101.3 fL (80.0-100.0); Mean Platelet Volume 10.4 fL (9.4-12.4); Platelet Count 117 K/uL (130-400); RDW Coefficient of Variation 14.8 % (11.5-14.5); RDW Standard Deviation 54.5 fL (36.4-46.3); Red Blood Count 2.27 M/uL (4.20-5.40); White Blood Count 3.05 K/ul (4.8-10.8)
[2025-02-10 07:12] LABS: Basophils # (auto) 0.03 K/uL (0.00-0.20); Eosinophils # (auto) 0.16 K/uL (0.00-0.50); Eosinophils % (auto) 5.2 %; Immature Granulocytes # (auto) 0.01 K/uL (0.01-0.20); Immature Granulocytes % (auto) 0.3 %; Lymphocytes # (auto) 1.04 K/uL (1.20-3.40); Lymphocytes % (auto) 34.1 %; Monocytes # (auto) 0.26 K/uL (0.11-0.59); Monocytes % (auto) 8.5 %; Neutrophils # (auto) 1.55 K/uL (1.40-6.50); Neutrophils % (auto) 50.9 %; Polychromasia 1+; Tear Drop Cells 1+
[2025-02-10 07:41] VITALS: RESP 18
[2025-02-10 07:43] LABS: BUN Creatinine Ratio 15.8 (10-20); Calcium 7.4 mg/dl (8.6-10.3); Creatinine Clr Calc Pharmacy 24.6 ml/min; Potassium 4.1 mmol/L (3.5-5.1)
--- NOTE | 2025-02-10 07:52 | Hospitalist Progress Note ---
Date of Service February 10, 2025 Assessment & Plan (1) Acute back pain: (2) Constipation: (3) Renal insufficiency: (4) Anemia: (5) Hypocalcemia: (6) Pericardial effusion: Plan 84-year-old female PMHx emphysema, GERD, hypothyroidism, essential tremor, RLS, PTSD presented via EMS for acute onset of lower back pain that began the morning of presentation to the hospital; midline pain without radiating symptoms. CT A/P on admission with thickening walled last ileal loop cecum and proximal ascending colon likely inflammatory/infectious, fecal loading in ascending and transverse colon, diverticulosis, L pelvic fluid collection (adnexal versus lymphocele) moderate sliding hiatal hernia type I, hepatomegaly simple cyst in liver, small gallstone), and mild bilateral pleural pericardial effusions. #Acute back pain Back pain starting morning of arrival, acute onset when sitting up in bed; trialed multiple doses of Tylenol with minimal relief, maximum pain "20/10". No recent trauma. No complaints of numbness/tingling, saddle anesthesia, or incontinence of bowel/bladder (from baseline incontinence). Without midline tenderness on exam, no skin changes. Suspect mainly musculoskeletal in nature but unclear if some component is GI related - Pain management: scheduled Tylenol, Dilaudid 0.25 mg IV q6h PRN breakthrough pain (cautious use of narcotics with ongoing constipation), home dose of gabapentin, heating pad and lidocaine patch - Deferred further steroids given ? infectious etiology as identified on CTAP. Deferred NSAIDs given concern for occult GI bleeding - PT/OT ordered-recommend inpatient rehab CM to f/u #Constipation/Abdominal pain Last BM between 2-5 days [employer], was "very dark brown" in color but normal consistency; does admit to some abdominal pain and with clear tenderness to palpation of RUQ. No N/V. Was to follow with GI outpatient on 02/09/2025. - Most recent CT A/P with fecal load of ascending and transverse colon, thickening within colon with mild peripheral fat stranding, probable infla mmatory/infectious etiology -Treated empirically with Zosyn IV due to concern for stercoral colitis. Antibiotics now discontinued given bowel movement, lipase WNL, LFTs WNL - Miralax + Senna rod, MoM prn. Reportedly large bowel movement overnight, but fecal occult was not collected. Fecal occult pending - GI consulted - appreciate input + recs - Advanced to full liquids now with plan to advance to heart healthy diet 4/ AM - Consider outpatient colonoscopy #Anemia / Pancytopenia Admitting H&H 8.5/26.3; most recent labs from 2019 were 12.1/38.7; denies overt bleeding but states that her stools were black in color not long ago and her most recent stools were "very dark brown." Does have history of anemia but patient unclear of etiology. Follows with oncologist for history of R breast CA 3 years ago s/p R mastectomy, who also manages her anemia and outpatient iron transfusions. - CTAP w/ hepatomegaly; LFTs WNL - Blood type A positive, antibody screen negative - Iron panel most consistent with anemia of chronic disease. B12 and folate WNL - Fecal occult pending - TSH WNL, peripheral smear with nonspecific pancytopenia, no overt myelodysplasia or hemolysis - Obtain outpatient hematology notes #Pericardial effusion/CAD s/p stent ? infectious/inflammatory etiology; Of note, with history of stent placement, on DAPT. - EKG at admission reports septal infarct; troponin x 2 WNL; patient denies chest pain during evaluation - EKG prn for chest pain - CTAP with pericardial effusion reported - Echocardiogram with EF 60-65%, small pericardial effusion, no echocardiographic indication of cardiac tamponade, grade 1 diastolic dysfunction Recommend repeat echo in 1 month #Renal insufficiency Likely secondary to renal hypoperfusion; poor oral intake per patient - UA negative for infection - Hold furosemide - Bladder scan prn #Hypocalcemia Asymptomatic currently. Given Calcium Carbonate x 1 on admission - Ca 8.5, corrected calcium for hypoalbuminemia at 9.0 - Continue to monitor #COPD/pulmonary emphysema- Albuterol inhaler as needed, Trelegy. Wears 2 L O2 HS, RA during the day #HLD- Atorvastatin #PTSD- Trazodone, buspirone #Hypothyroidism- Levothyroxine #GERD- Pantoprazole Dispo: Continued inpatient stay to complete workup and treatment. PT/OT recommending inpatient rehab. Case management following VTE prophylaxis: SCDs- consider chemical prophylaxis pending complete workup/if prolonged stay Updated caregiver at bedside Discontinued antibiotics Advanced diet Admission and Anticipated Discharge Date Admission Date: February 07, 2025 Results & Data Results & Data Vital Signs (Past 12 Hours) Vital Signs Temp Pulse Pulse Resp BP BP Pulse Ox 02/10/25 07:40 36.5 C 77 18 119/66 91 02/10/25 07:14 60 02/10/25 02:04 36.7 C 56 L 16 92/37 L 100 02/09/25 22:40 36.6 C 64 18 113/44 L 93 02/09/25 21:44 57 L 02/09/25 20:40 O2 Del Method O2 Flow Rate 02/10/25 07:40 Room Air 02/10/25 07:14 02/10/25 02:04 Nasal Cannula 2 02/09/25 22:40 Room Air 02/09/25 21:44 02/09/25 20:40 Room Air PG Care Time/CCT Total # of Minutes Spent Total Time Spent with Patient: Total time spent is greater than 50% in coordination of care (as documented) at patient's floor/unit and/or counseling patient: Coding Diagnoses Acute back pain M54.9 Constipation K59.00 Renal insufficiency N28.9 Anemia D64.9 Hypocalcemia E83.51 Pericardial effusion I31.39
--- NOTE | 2025-02-10 09:20 | Discharge Summary ---
Discharge Summary Date of Service February 10, 2025 Principal Dx & Hospital Course #1 = Principal Diagnosis (1) Acute back pain: (2) Constipation: (3) Renal insufficiency: (4) Anemia: (5) Hypocalcemia: (6) Pericardial effusion: Plan 84-year-old female PMHx emphysema, GERD, hypothyroidism, essential tremor, RLS, PTSD presented via EMS for acute onset of lower back pain that began the morning of presentation to the hospital; midline pain without radiating symptoms. CT A/P on admission with thickening walled last ileal loop cecum and proximal ascending colon likely inflammatory/infectious, fecal loading in ascending and transverse colon, diverticulosis, L pelvic fluid collection (adnexal versus lymphocele) moderate sliding hiatal hernia type I, hepatomegaly simple cyst in liver, small gallstone), and mild bilateral pleural pericardial effusions. #Acute back pain Back pain starting morning of arrival, acute onset when sitting up in bed; trialed multiple doses of Tylenol with minimal relief, maximum pain "20/10". No recent trauma. No complaints of numbness/tingling, saddle anesthesia, or incontinence of bowel/bladder (from baseline incontinence). Without midline tenderness on exam, no skin changes. Suspect mainly musculoskeletal in nature but unclear if some component is GI related - Pain management: scheduled Tylenol, Dilaudid 0.25 mg IV q6h PRN breakthrough pain (cautious use of narcotics with ongoing constipation), home dose of gabapentin, heating pad and lidocaine patch - Deferred further steroids given ? infectious etiology as identified on CTAP. Deferred NSAIDs given concern for occult GI bleeding - PT/OT ordered-recommend inpatient rehab CM to f/u 02/10 Patient eating/drinking , no significant pain. Last BM large evening 02/08, no tenderness to touch. Discussed continued bowel regimen, LOW DOSE oxy 2.5mg as needed and continued bowel regimen. Outpatient colonoscopy, monitor for an bleeding but denied despite hgb in 7s and prior in 2018s so unclear when change occured but iron studies slightly low/acute on chronic SHANNAN and can consider Venofer IV w/ PCP outpatient but avoid PO given issues with constipation. GI consult rec having outpatient follow up and bowel regimen and did move her bowels prior to dc PT/OT rec rehab however improvement following BM and preference on HHPT as she reports has >100hr aide care at home, wanting to go. Cm to discuss HH service and arrange at [place] Rec patient have PCP coordinate w/ F/u outpt hematology given hx breast ca, as above, outpt c-scope if not already done. would avoid NSAIDs in meantime. #Constipation/Abdominal pain Reported had been 2-5 days [employer] since last bowel movement but does have some pain with tenderness on admission and CTAP noted fecal load with some thickening within colon with mild peripheral fat stranding, possible inflammatory vs infectious and was initially treated with Zosyn IV for concerns stercoral colitis and GI was consulted and abx stopped following bowel movement without GI recs for continud abx and remained afebrile/wbc wnl and improved off abx and were not continued but should be monitored in follow up if having any infectious sx/consider course abx but otherwise should have GI follow up for outpt c-scope and rec continued bowel regimen at [place] to prevent constipation. Fecal occult ordered but never collected however no large dark color reported by nursing staff but again would check fecal occult and stool studies in follow up if occurs. Again, need c-scope if never done given hx breast ca 3 yrs prior #Anemia / Pancytopenia Hx breast ca s/p R mastectomy and outpt iron transfusions Hgb 8.5 on admission with last CBC in 2019 at 12.1 and not clear duration given lack of lab checks between. No CP/SOB or dizziness with standing. CTAP w/ hepatomegaly but normal LFTs. Ca not elevated Denies hx bleeding but did report some dark color to stools not too long ago. Iron studies as above c/w anemia chronic disease and B12/folate checked and wnl. Peripheral smear nonspecific pancytopenia, no overt myelodysplasia or hemolysis Rec f/u PCP and hematology at [place] per supervising provider, would repeat Venofer infsuions (avoid PO w/ constipation issues) Lyme negative. TSH wnl Rec repeat labs and again f/u hematology outpt #Pericardial effusion/CAD s/p stent ? infectious/inflammatory etiology; Of note, with history of stent placement, on DAPT. EKG w/ septal infarct reports but trop neg x 2. No CP. CTAp did note pericardial effusion (lyme checked, negative). ECHO w/ normal EF Recommend repeat echo 1 month, VSS, no hypoxia #Renal insufficiency Likely secondary to renal hypoperfusion; poor oral intake per patient, UA negative and lasix held without retention. Cr stable 1.2 and improved PO intake. Outpt f/u #Hypocalcemia Asymptomatic currently. Given Calcium Carbonate x 1 on admission and corrected for albumin to 9. continue adequate hydration at dc. consider checking vit d/further labs in f/u #COPD/pulmonary emphysema- Albuterol inhaler as needed, Trelegy. Wears 2 L O2 HS, RA during the day #HLD- Atorvastatin #PTSD- Trazodone, buspirone #Hypothyroidism- Levothyroxine, TSH wnl #GERD- Pantoprazole to have been continued daily but does not appear was ordered on admission. No increased reflux but does have hiatal hernia. Monitor to increase to BID in f/u pending CBC Notes For Next Care Provider Rec repeat ECHO 1 month Rec Venofer infusions, reaching back out to heme/onc given breast ca hx and should have colonoscopy if not done prior Notable was given IV Zosyn on admission for possible infectious/inflammatory findings on CTAP but GI did not rec continuing but if any issues would consider. Medication Changes From Visit Oxycodone 2.5mg as needed Miralax, senna daily Admission HPI Per Admitting Provider 84-year-old female PMHx emphysema, GERD, hypothyroidism, essential tremor, RLS, PTSD presenting via EMS for lower back pain. Reportedly had acute onset low back pain when she sat up in bed the morning of arrival. Located at midline and does not radiate. Did utilize Tylenol multiple times throughout the day which provided some relief but the pain continues become more severe. Around 1600 she had a recurrence of back pain, stating the pain was "20/10" on the pain scale and she was screaming out in pain. Her reprint sorter, Yenifer, is present in room and helps to provide a history. States that the patient was "literally screaming out in pain" and she initially was going to drive her to the hospital but decided to call the ambulance instead. Shelby denies any neurological symptoms throughout this course other than some numbness in her feet after the ambulance ride. States that she has bowel and bladder incontinence at baseline but that this has not worsened or changed at all since the onset of back pain. Denies any recent falls or trauma to the back. Has had a history of back pain in the past, but never this severe. Admits that she often has problems with constipation, and that her last BM was between 2-5 days ago. Of note, the patient has had black stool in the past, but states that her last BM was a dark brown color and does not believe that it was black then. She denies bleeding or blood in stool otherwise. Does have some mild abdominal pain that is "all over" and mainly when she does not have a BM. She denies N/V. No additional symptoms to include chest pain, SOB, palpitations, diarrhea, LUTS, weakness, syncope, or F/C. Does have a history of R breast CA approximately 3 years ago and w/ R mastectomy; follows with oncologist who also manages her anemia and iron transfusions. Is not on oral iron at this time. ED evaluation reveals leukopenia, H&H 8.5/26.3; chloride 109, BUN 24, creatinine 1.23, calcium 8.5; troponin 7.5, 9.4 on repeat; UA negative for infection; lipase 26; CTAP with thickening walled last ileal loop cecum and proximal ascending colon likely inflammatory/infectious, fecal loading in ascending and transverse colon, diverticulosis, L pelvic fluid collection (adnexal versus lymphocele) moderate sliding hiatal hernia type I, hepatomegaly simple cyst in liver, small gallstone), and mild bilateral pleural pericardial effusions.; Provided with 1L NSS, methylprednisolone 60 mg IV, lidocaine patch, fentanyl citrate 25 mcg x 3, and acetaminophen IV in ED. Please see Dr. Hirsch's attestation for adjustments/additions to treatment plan. Admission Exam Per Admitting Provider General: No acute distress Skin: Warm and dry; No rashes noted to back/abdomen Head: Normocephalic, atraumatic; tremor Eyes: PERRL, conjunctivae clear, sclera non-icteric; bruise below R eye (patient unsure where this came from) ENT: External ear and ear canal without swelling; nose atraumatic; good dentition, tongue normal appearance, pharynx normal Neck: Supple, no LAD Cardio: RRR, no M/G/R, S1 and S2 normal Resp: No respiratory distress, Lungs CTA in all lobes bilaterally, no wheezes, rales, or rhonchi Abdomen: Soft, symmetric, tenderness to palpation RUQ, liver palpable below rib border; No guarding or peritoneal signs; No masses or splenomegaly; Bowel sounds normoactive MSK: No deformities; pulses palpable and equal; no edema; No midline tenderness to palpation of back, with tenderness to palpation of R paraspinal muscles at area of R kidney; negative straight leg raise bilaterally Neuro: Awake, alert; Sensation intact bilaterally; CN grossly intact. Resting tremor and head tremor at baseline. Psych: Appropriate mood and affect; good judgement and insight. Nurse Intern, Yenifer, present in room at time of visit. Discharge Exam General: 84yo female sitting up in bed, eating breakfast, NAD and wanting to go home Head atraumatic, normocephalic, mmm, trachea midline Resp; even/unlabored, on room air, no tachypnea/cough CV: RRR, no significant m/r/g, no pitting edema GI: +BS, soft/nontender no white MSK/Neuro: decreased tenderness paraspinal muscles in lumbar region, no step offs or focal deficit not confused, no slurred speech, answering questions appropriately Psych: AOx3, cooperative with exam Discharge Plan Discharge Items Patient Disposition: Home - Home Health Services Reason For Visit: BACK PAIN,ANEMIA,HECTOR Discharge Diagnosis: Back pain Activity: As commented below Non-emergency contact: Primary Care Provider and Hammer [employer]ater Call non-emergency contact if: you have any medication questions, your symptoms worsen, your pain is not controlled, your pain is worsening and your pain is unusual for you Follow-up/Referrals: Latrice Davis PA-C [Primary Care Provider] - (PLEASE CALL YOUR PRIMARY CARE PROVIDER TO SCHEDULE A HOSPITAL DISCHARGE FOLLOW-UP APPOINTMENT WITHIN 7-10 DAY S) Diet: Heart Healthy Addtl Attending Provider Instructions: You have been hospitalized for back pain. No acute fractures were noted but you did have constipation which improved back pain once moving your bowels and GI recommends outpatient colonoscopy. Can continue oxycodone 2.5mg (half tablet) as needed every 4-6hours as needed but please continue miralax DAILY and colace twice daily to help prevent worsened constipation. Therapy recommended rehab but as discussed have arranged for home health services as discussed. Please follow up with primary care in the next week to monitor your progress. Please return to the ER with any worsening pain, shortness of breath, blood in urine or stool or for any other symptoms concerning for you. It has been a pleasure being a part of the medical team providing for you while you have been in the hospital. Take care! Pending Studies at Discharge: No Stand-Alone Forms: My [facility], Smoking Cessation Medications and DC Order Prescriptions: New oxycodone 5 mg Tablet 2.5 mg PO Q4H PRN (Reason: pain) Qty: 14 0RF polyethylene glycol 3350 [Miralax] 17 gram Powder In Packet 17 g PO DAILY Qty: 14 0RF sennosides [Senokot] 8.6 mg Tablet 17.2 mg PO HS Qty: 30 0RF Continued albuterol sulfate 90 mcg/actuation HFA aerosol inhaler 2 puff inhalation Q4H PRN (Reason: Shortness Of Breath Or Wheezing) multivitamin Tablet 1 tab PO DAILY atorvastatin 20 mg tablet 20 mg PO DAILY donepezil 5 mg tablet 5 mg PO DAILY trazodone 50 mg tablet 50 mg PO HS alendronate 70 mg tablet 70 mg PO WK gabapentin 400 mg capsule 400 mg PO TID clopidogrel 75 mg tablet 75 mg PO DAILY aspirin 81 mg Tablet,Delayed Release (Dr/Ec) 81 mg PO DAILY acetaminophen 500 mg Tablet 500 - 1,000 mg PO Q6H PRN (Reason: PAIN/FEVER) pentoxifylline 400 mg tablet extended release 400 mg PO TIDM levothyroxine 88 mcg tablet 88 mcg PO DAILYBB pantoprazole 40 mg tablet,delayed release (DR/EC) 40 mg PO DAILY buspirone 10 mg tablet 10 mg PO TID furosemide 20 mg tablet 20 mg PO DAILY PRN (Reason: LEG SWELLING) Trelegy Ellipta 100-62.5-25 mcg blister with device 1 inh INHALATION DAILY Discharge Orders: Discharge Order (Routine); Ordered 02/10/25 Ordered By: Aspen Grullon Admission Data Admit Date/Time: 02/07/25 22:48 Attending Provider: Kam Solis Admit Provider: Lon Hirsch Primary Care Provider: Latrice Davis Other Providers: Lon Hirsch; Jean Panda Jr Other Interventions: Discharge Summary Assessment (RN) Last Done: 02/10/25 09:31 Hospital Stay Data Consultations 02/07/25 22:08 ED Decision to Admit Stat 02/08/25 00:15 Consult Gastroenterology Routine Diagnostic Imagining Performed Abdomen/Pelvis CT 02/07/25 17:50 EXAM: CT abd pelvis IV con only CLINICAL HISTORY: LBP/midline, periumbilical/diffuse ab pain. TECHNIQUE: CT of the abdomen and pelvis was performed with contrast, with the following protocol: axial images with, and reconstructed coronal and sagittal images. One of the following dose reduction techniques was utilized for this exam: Automated exposure control, adjustment of the mA and/or kV according to patient size, and use of iterative reconstruction. COMPARISON: No prior studies available for comparison. FINDINGS: Mild bilateral pleural and pericardial effusion. Abdomen: Moderate sliding hiatal hernia (type I). Liver: Hepatomegaly, measuring 17 cm at the largest craniocaudal span in the right lobe. There is a 1.0 cm simple cyst in segment IV. No focal lesions, cysts, or masses were identified. Hepatic vasculature and biliary ducts are unremarkable. Gallbladder and Biliary System: The gallbladder is normal in size and shape. There is a 0.5 cm calcific stone in the fundus. No wall thickening or pericholecystic fluid were identified. The common bile duct is normal in caliber without dilation. Pancreas: Pancreatic head, body, and tail are visualized and appear normal in size and density. No pancreatic masses or calcifications were noted. The pancreatic duct is not dilated. Spleen: Normal in size, shape, and density. No splenic lesions or masses were identified. Kidneys and Adrenal Glands: Both kidneys are normal in size, shape, and position. Cortical thickness is within normal limits. No renal calculi or hydronephrosis. Mild hydroureter noted on the left side in the two upper thirds. Adrenal glands are unremarkable with no evidence of masses or hyperplasia. Pelvis: Urinary Bladder: Normal in contour and wall thickness. No intraluminal lesions identified. Uterus and Ovaries: Not visualized but no gross abnormalities noted. Peritoneal and Retroperitoneal Structures: Fluid collection noted in the left side of the pelvis, measuring 2.9 x 2.7 x 2.5 cm. No lymphadenopathy was noted. Atherosclerotic calcification of the aorta and major branches is seen. Bowel: Mild thickening and edema of the wall in the last ileal loop, the cecum and proximal ascending colon (Series 300 Image 25/, Series 2 Image 49/84), however they are normal in caliber. Associated mild fat stranding is also noted. Increased stool density in the ascending but mainly in the transverse colon. Marked sigmoid colon diverticulosis without CT evidence of acute diverticulitis. The appendix is not visualized. No evidence of bowel obstruction. Bones and Soft Tissues: Pelvic bones and soft tissues are unremarkable. No fractures or abnormal masses were identified. Bony island in the left femur. IMPRESSION: Thickened-walled last ileal loop, cecum and proximal ascending colon with mild peripheral fat stranding, probable inflammatory/ infectious etiology. Fecal load of the ascending and transverse colon. Noncomplicated sigmoid colon diverticulosis. Left pelvic fluid collection measuring 2.9 x 2.7 x2.5 cm, probable adnexal versus lymphocele (if history of oophorectomy), with upstream mild left hydroureter. Moderate sliding hiatal hernia (type I). Hepatomegaly, 17 cm, and a 1.0 cm simple cyst in the liver. A small gallstone in the fundus. Mild bilateral pleural and pericardial effusion. Further evaluation with chest CT recommended if clinically warranted. Correlate clinically. Electronically signed by Blair Villavicencio 02-07-2025 8:43 PM ECHOCARDIOGRAM 02/08/2025 The left ventricle is normal in size. There is moderate cLVH. EF 60-65%. LV systolic function is normal. The LA is moderately dilated. Aortic valve sclerosis mild, without significant aortic valvular stenosis. Moderate mitral annular calcification. Calcified mitral apparatus causing mitral stenosis. Mild to moderate mitral regurgitation. Small pericardial effusion. No indications of cardiac tamponade. Grade I diastolic dysfunction. Discharge Instructions Given to Patient (Per Discharging Provider) You have been hospitalized for back pain. No acute fractures were noted but you did have constipation which improved back pain once moving your bowels and GI recommends outpatient colonoscopy. Can continue oxycodone 2.5mg (half tablet) as needed every 4-6hours as needed but please continue miralax DAILY and colace twice daily to help prevent wor sened constipation. Therapy recommended rehab but as discussed have arranged for home health services as discussed. Please follow up with primary care in the next week to monitor your progress. Please return to the ER with any worsening pain, shortness of breath, blood in urine or stool or for any other symptoms concerning for you. It has been a pleasure being a part of the medical team providing for you while you have been in the hospital. Take care! Supervising Physician Co-Signing Physician Notes The patient was not seen by me. The chart was reviewed. Case discussed with PILAR Cunha. Agree with assessment and plan Total Time Total Time Spent Total Time Spent (In Minutes): 45 Coding Level of Care Code 98981 INP/OBS DISCH >30 MIN Diagnoses Acute back pain M54.9 Constipation K59.00 Renal insufficiency N28.9 Anemia D64.9 Hypocalcemia E83.51 Pericardial effusion I31.39
[2025-02-10] MEDS: oxyCODONE HCL IR 5 MG TAB (IMMEDIATE RELEASE) PO PRN (11:25)
[2025-02-10 11:31] VITALS: BP 152/60; PULSE 63; TEMP 97.9; O2SAT 94
[2025-02-10 13:00] LABS: Adenovirus F 40/41 PCR Not Detected (NotDetected); Astrovirus PCR Not Detected (NotDetected); Campylobacter PCR Not Detected (NotDetected); Cryptosporidium PCR Not Detected (NotDetected); Cyclospora cayetanensis PCR Not Detected (NotDetected); Entamoeba histolytica PCR Not Detected (NotDetected); Enteroaggregative E.coli(EAEC) Not Detected (NotDetected); Enteropathogenic E.coli (EPEC) Not Detected (NotDetected); Enterotoxigenic E.coli (ETEC) Not Detected (NotDetected); Giardia lamblia PCR Not Detected (NotDetected); Norovirus GI/GII PCR Not Detected (NotDetected); Plesiomonas shigelloides PCR Not Detected (NotDetected); Rotavirus A PCR Not Detected (NotDetected); Salmonella PCR Not Detected (NotDetected); Sapovirus PCR Not Detected (NotDetected); Shiga-like Toxin E.coli (STEC) Not Detected (NotDetected); Shigella/Enteroinvasive E.coli Not Detected (NotDetected); Vibrio cholerae PCR Not Detected (NotDetected); Vibrio species PCR Not Detected (NotDetected); Yersinia enterocolitica PCR Not Detected (NotDetected)
== END 2025-02-10 13:21 | disposition home health service (06) | DRG 552 ==
LOC: ED 17:38 → SUATTDRO 22:48 → INTOOBSV 22:48 → 2N 22:48